=== PATIENT | male | born 1945 | race Caucasian/White ===

== ENCOUNTER 2020-08-04 16:05 | Emergency (ER) | payer MEDICARE, SELFPAY ==
--- NOTE | 2020-08-04 17:02 | PC.NURSE ---
1610- pt states that he currently has nose bleed stopped by sticking gauze in nare, and pt states on and off x 1 week, and is on blood thinners, pt states that he called his veneer clipper, who stated that he should go get it cauterized if it continues. pt decided to go to er, and left ambulatory with to drive him there.
== END 2020-08-04 16:10 | disposition left against medical advice (07) ==
PROVIDERS: Emergency Provider Internal Medicine Hematology & Oncology; PCP Family Medicine
DX: Z53.21 Procedure and treatment not carried out due to patient leaving prior to being seen by health care provider (principal)
CPT/HCPCS: 99199

== ENCOUNTER 2020-08-04 16:27 | Emergency (ER) | payer MEDICARE, SELFPAY ==
[2020-08-04 17:17] VITALS: BP 149/67; PULSE 76; RESP 16; TEMP 36.4; O2SAT 97
--- NOTE | 2020-08-04 17:20 | PC.NURSE ---
patient brought back to ED room 17 with c/o nose bleed intermittently for the last week. see triage notes. no change in patient's condition since triage done. ambulated to room. no active bleeding now.
--- NOTE | 2020-08-04 18:38 | PC.NURSE ---
resting in room. PA in room now. no further bleeding since arrival in ED. SO in room.
[2020-08-04] MEDS: OXYMETAZOLINE HCL 0.05% NAS 15 ML BTL (*BKC) 1 SPRAY (18:46)
--- NOTE | 2020-08-04 18:51 | PC.NURSE ---
provider in room. afrin and gauze to right nare.
--- NOTE | 2020-08-04 19:06 | ED.EPISTAXIS ---
HPI - Epistaxis General Chief complaint: Epistaxis Stated complaint: NOSE BLEED Time Seen by Provider: 08/04/20 18:03 Source: patient Mode of arrival: ambulatory Limitations: no limitations History of Present Illness HPI Narrative: This is a 74 year old male that presents to the ER for intermittent nosebleeds over the last week. Reports he has had nosebleeds from the right nare. No active bleeding currently. He takes aspirin and plavis daily. Denies fever. Related Data Home Medications Medication Instructions Recorded Confirmed aspirin 81 mg tablet,delayed 81 mg PO DAILY 08/23/19 release atorvastatin 40 mg tablet 40 mg PO DAILY 08/23/19 calcium carbonate 600 mg calcium 600 mg PO BID 08/23/19 (1,500 mg) tablet cholecalciferol (vitamin D3) 25 25 mcg PO DAILY 08/23/19 mcg (1,000 unit) capsule clopidogrel 75 mg tablet 75 mg PO DAILY 08/23/19 metoprolol succinate 50 mg capsule 50 mg PO DAILY 08/23/19 sprinkle, ext. release 24 hr multivitamin 1 cap PO DAILY 08/23/19 nitroglycerin 0.4 mg sublingual 0.4 mg SUBLINGUAL Q5M PRN 08/23/19 tablet pantoprazole 20 mg tablet,delayed 20 mg PO QAM 08/23/19 release Allergies Allergy/AdvReac Type Severity Reaction Status Date / Time lactase Allergy Unknown Nausea Verified 08/04/20 17:58 peanut Allergy Unknown digestive Verified 08/04/20 17:58 issues Review of Systems Review of Systems: Narrative: CONSTITUTIONAL: Denies fever ENT: Reports epistaxis All systems reviewed & are unremarkable except as noted in HPI and below PMFSH Past Medical History Medical History (Updated 08/04/20 @ 19:13 by Elyssa Mora PA-C) Aneurysm BPH (benign prostatic hyperplasia) Controlled diabetes mellitus Coronary artery disease GERD (gastroesophageal reflux disease) History of left heart catheterization HLD (hyperlipidemia) Hypertension with heart disease IFG (impaired fasting glucose) Surgical History Surgical History (System 09/11/19 @ 09:46 by Elmira Blair) History of shoulder surgery Right rotator cuff repair 2014- Dr. Martinez S/P right knee arthroscopy 2012 S/P right unicompartmental knee replacement 2011 Family History Family History (System 09/11/19 @ 09:46 by Elmira Blair) Father AAA (abdominal aortic aneurysm) Mother Diabetes mellitus Cerebrovascular accident Heart disease Sibling Diabetes mellitus Sibling Patient's sister is in good health Father Family history of aortic aneurysm Mother Family history of diabetes mellitus in first degree relative Social History Social History Smoking packs per day: 1 Smoking cigarettes per day: 20.0 Years smoked: 35 Smoking pack-years: 35.00 Smoking status: Former smoker Tobacco type: cigarettes Second hand tobacco smoke exposure: Yes Smoking end date: 06/27/02 Additional smoking assessment comments: Smoked for 35 years0 Alcohol intake: current Substance use: never Substance use type: does not use Additional living arrangements comments: Gender identity (if verbalized by the patient): Male Spiritual care concerns: No Exam Narrative: Exam Narrative: GENERAL: Well-appearing, well-nourished, and in no acute distress. HEAD: Normocephalic, atraumatic. EYES: EOMI. ENT: Nares clear, no rhinorrhea or epistaxis. Mucous membranes moist. Oropharynx without tonsillar hypertrophy exudate or other lesions. CHEST: Airway patent EXTREMITIES: Normal range of motion. No edema. SKIN: Warm, dry, no rash. NEURO: No focal deficits. Alert and oriented x3. PSYCH: Normal mood and affect Course Consultations Consultation #1: Spoke with Dr. Rodriguez about patient and workup. Will hold off on rhino rocket right now, patient is to follow up in clinic tomorrow Date: 08/04/20 Vital Signs Vital signs: Vital Signs Temperature 97.5 F L 08/04/20 17:17 Pulse Rate 76 08/04/20 17:17 Respiratory Rate
[2020-08-04 19:23] VITALS: BP 138/86; PULSE 78; RESP 19; TEMP 36.3; O2SAT 97
== END 2020-08-04 19:24 | disposition home or self-care (01) ==
PROVIDERS: Emergency Provider Emergency Medicine; PCP Family Medicine
DX: R04.0 Epistaxis (principal); N40.0 Benign prostatic hyperplasia without lower urinary tract symptoms; E11.9 Type 2 diabetes mellitus without complications; I25.10 Atherosclerotic heart disease of native coronary artery without angina pectoris; K21.9 Gastro-esophageal reflux disease without esophagitis; I11.9 Hypertensive heart disease without heart failure; E78.5 Hyperlipidemia, unspecified; Z96.651 Presence of right artificial knee joint; Z87.891 Personal history of nicotine dependence; Z79.82 Long term (current) use of aspirin; Z79.02 Long term (current) use of antithrombotics/antiplatelets
CPT/HCPCS: 30901; 99282; A9270

== ENCOUNTER 2020-09-02 10:30 | Outpatient (RCR) | payer MEDICARE, SELFPAY ==
[2020-06-05 09:31] VITALS: BMI 31.3
[2020-06-05 09:41] VITALS: BMI 31.3
== END 2020-09-03 23:59 | disposition home or self-care (01) ==
LOC: ANHDMC 10:30
PROVIDERS: PCP Family Medicine; Visit Provider Physician Assistant
DX: E11.9 Type 2 diabetes mellitus without complications (principal); Z71.3 Dietary counseling and surveillance; Z71.89 Other specified counseling
CPT/HCPCS: 97802; G0108

== ENCOUNTER 2020-11-19 14:30 | Outpatient (RCR) | payer MEDICARE, SELFPAY ==
[2020-09-18 09:44] VITALS: BMI 29.7
== END 2020-12-08 14:41 | disposition home or self-care (01) ==
LOC: ANHDMC 14:30
PROVIDERS: PCP Family Medicine; Visit Provider Physician Assistant
DX: E11.9 Type 2 diabetes mellitus without complications (principal); Z71.3 Dietary counseling and surveillance; Z71.89 Other specified counseling
CPT/HCPCS: 97803; G0109

== ENCOUNTER 2021-01-29 14:03 | Outpatient (RCR) | payer MEDICARE, SELFPAY | END 2021-04-22 11:53 | disposition home or self-care (01) | LOC: ANHDMC 14:03 | PROVIDERS: PCP Family Medicine; Visit Provider Physician Assistant | DX: E11.9 Type 2 diabetes mellitus without complications (principal) | CPT/HCPCS: 99199 ==

== ENCOUNTER 2021-08-03 00:43 | Day surgery (SDC) | payer MEDICARE, SELFPAY ==
[2021-07-24 14:42] VITALS: BMI 27.8
--- NOTE | 2021-08-03 07:31 | WPDANESEPPF ---
Anes - Initial Pre Proc Eval Procedure: Operation Date: 08/03/21 08:30 Proposed Procedures p Esophagogastroduodenoscopy - Neno Garrett MD Date/Time: 08/03/21 07:31 Surgeon: Neno Garrett MD Pre Op Diagnosis: GERD, dysphagia Patient Data Age: 75 Gender: M Height: 1.78 m Weight: 88 kg Allergies Allergy/AdvReac Type Severity Reaction Status Date / Time lactose Allergy Intermediate Gastrointestinal Verified 08/03/21 07:38 Upset peanut Allergy Intermediate digestive Verified 08/03/21 07:38 issues lactase Allergy Unknown Nausea Verified 08/03/21 07:38 Home Medications Medication Instructions Recorded Confirmed Type aspirin 81 mg tablet,delayed 81 mg PO DAILY 08/23/19 08/03/21 History release atorvastatin 40 mg tablet 40 mg PO DAILY 08/23/19 08/03/21 History calcium carbonate 600 mg calcium 600 mg PO DAILY 08/23/19 08/03/21 History (1,500 mg) tablet cholecalciferol (vitamin D3) 25 25 mcg PO DAILY 08/23/19 08/03/21 History mcg (1,000 unit) capsule clopidogrel 75 mg tablet 75 mg PO DAILY 08/23/19 08/03/21 History multivitamin 1 cap PO DAILY 08/23/19 08/03/21 History nitroglycerin 0.4 mg sublingual 0.4 mg SUBLINGUAL Q5M PRN 08/23/19 08/03/21 History tablet blood sugar diagnostic #100 ea 03/11/21 08/03/21 Rx blood-glucose meter #1 ea 03/11/21 08/03/21 Rx lancets #100 ea 03/11/21 08/03/21 Rx acyclovir 400 mg tablet 400 mg PO DAILY #90 tablet 04/06/21 08/03/21 Rx doxazosin 8 mg tablet See Rx Instructions .ROUTE 04/06/21 08/03/21 Rx .COMPLEX #90 tablet pantoprazole 40 mg tablet,delayed 40 mg PO QAM #30 tablet 07/22/21 08/03/21 Rx release metoprolol succinate 50 mg PO DAILY 07/24/21 08/03/21 History mupirocin 1 applic TOPICAL BID PRN 07/24/21 08/03/21 History Patient hx anesthesia problems: none Family hx anesthesia problems: none Results Review: All pre-operative results and documents have been reviewed as part of the pre-operative evaluation. [facility] Past Medical History Medical History (Updated 08/03/21 @ 07:54 by Neno Garrett MD) Aneurysm BPH (benign prostatic hyperplasia) Controlled diabetes mellitus Coronary artery disease Diabetes GERD (gastroesophageal reflux disease) History of left heart catheterization HLD (hyperlipidemia) Hypertension with heart disease IFG (impaired fasting glucose) Surgical History Surgical History History of shoulder surgery Right rotator cuff repair 2014- Dr. Martinez S/P right knee arthroscopy 2012 S/P right unicompartmental knee replacement 2011 Family History Family History Father AAA (abdominal aortic aneurysm) Mother Diabetes mellitus Cerebrovascular accident Heart disease Sibling Diabetes mellitus Sibling Patient's sister is in good health Father Family history of aortic aneurysm Mother Family history of diabetes mellitus in first degree relative Social History Social History (Updated 07/22/21 @ 11:09 by Alisha Partida) Social History: Smoking packs per day: 1 Smoking cigarettes per day: 20.0 Years smoked: 35 Smoking pack-years: 35.00 Smoking status: Former smoker Tobacco type: cigarettes Second hand tobacco smoke exposure: Yes Smoking end date: 06/27/02 Additional smoking assessment comments: Smoked for 35 years0 Alcohol intake: current Alcohol use details: occasionally Substance use: never Substance use type: does not use Living arrangements: with family Additional living arrangements comments: Gender identity (if verbalized by the patient): Male Sexual Orientation (if Verbalized by the Patient): Straight or Heterosexual Spiritual care concerns: No Anes - Eval Final PreProcedure Day of Procedure 08/03/21 07:31 Patient weight: overweight Heart: regular rate and rhythm Lungs: clear to auscultation and normal air movement Airway:
[2021-08-03 07:39] VITALS: BP 136/71; PULSE 71; RESP 16; TEMP 35.7; O2SAT 98
[2021-08-03] MEDS: LACTATED RINGERS 1,000 ML 150 ML IV CONT (07:52)
--- NOTE | 2021-08-03 07:52 | WPDGICN ---
Assessment and Plan Assessment and plan (1) Dysphagia: Code(s): R13.10 - Dysphagia, unspecified Status: Acute Assessment and Plan: Patient has occasional episodes of dysphagia. 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 Plan is for EGD assess more thoroughly and possible dilate this pending findings. (2) GERD (gastroesophageal reflux disease): Code(s): K21.9 - Gastro-esophageal reflux disease without esophagitis Status: Acute Assessment and Plan: Patient with chronic GE reflux disease currently on pantoprazole 40mg p.o. daily. Will continue this dose of medicines along with anti-reflux measures. EGD to be performed today. GI Consult Note Consult date/time: 08/03/21 07:52 HPI: Kenny Multani is a 75 year old male Presents for EGD. Patient has a history of acid reflux. He has been maintained on pantoprazole for 6 or 7 years. In June had brief episode where food caught the mid substernal portion of the chest. He has had an frequent sensation of fullness in the chest as well. He is known to have acid reflux and regurgitation for at least the fiber 6 years. Previously had a web dilated. Denies any weight loss or bleeding. Family history is noncontributory. He presents today for EGD. Review of Systems Review of Systems: All systems reviewed & are unremarkable except as noted in HPI and below PMFSH Past Medical History Medical History (Updated 08/03/21 @ 07:54 by Neno Garrett MD) Aneurysm BPH (benign prostatic hyperplasia) Controlled diabetes mellitus Coronary artery disease Diabetes GERD (gastroesophageal reflux disease) History of left heart catheterization HLD (hyperlipidemia) Hypertension with heart disease IFG (impaired fasting glucose) Surgical History Surgical History History of shoulder surgery Right rotator cuff repair 2014- Dr. Martinez S/P right knee arthroscopy 2012 S/P right unicompartmental knee replacement 2012 Family History Family History Father AAA (abdominal aortic aneurysm) Mother Diabetes mellitus Cerebrovascular accident Heart disease Sibling Diabetes mellitus Sibling Patient's sister is in good health Father Family history of aortic aneurysm Mother Family history of diabetes mellitus in first degree relative Social History Social History (Updated 07/22/21 @ 11:09 by Alisha Sweeney Social History: Smoking packs per day: 1 Smoking cigarettes per day: 20.0 Years smoked: 35 Smoking pack-years: 35.00 Smoking status: Former smoker Tobacco type: cigarettes Second hand tobacco smoke exposure: Yes Smoking end date: 06/27/02 Additional smoking assessment comments: Smoked for 35 years0 Alcohol intake: current Alcohol use details: occasionally Substance use: never Substance use type: does not use Living arrangements: with family Additional living arrangements comments: Gender identity (if verbalized by the patient): Male Sexual Orientation (if Verbalized by the Patient): Straight or Heterosexual Spiritual care concerns: No Meds Home Medications and Allergies Home Medications Medication Instructions Recorded Confirmed Type aspirin 81 mg tablet,delayed 81 mg PO DAILY 08/23/19 08/03/21 History release atorvastatin 40 mg tablet 40 mg PO DAILY 08/23/19 08/03/21 History calcium carbonate 600 mg calcium 600 mg PO DAILY 08/23/19 08/03/21 History (1,500 mg) tablet cholecalciferol (vitamin D3) 25 25 mcg PO DAILY 08/23/19 08/03/21 History mcg (1,000 unit) capsule clopidogrel 75 mg tablet 75 mg PO DAILY 08/23/19 08/03/21 History multivitamin 1 cap PO DAILY 08/23/19 08/03/21 History nitroglycerin 0.4 mg sublingual 0.4 mg SUBLINGUAL Q5M PRN 08/23/19 08/03/21 History tablet blood sugar diagnostic #100 reina 03/11/21 08/03/21 Rx blood-glucose meter #1 reina
[2021-08-03] MEDS: BENZOCAINE (*SP) 60 ML SPRAY CAN (HURRICAINE) 1 SPRAY MUCOUS MEM (08:26)
[2021-08-03 08:33] VITALS: BP 115/75; PULSE 63; RESP 17; O2SAT 99
[2021-08-03 08:43] VITALS: BP 125/50; PULSE 66; RESP 19; O2SAT 98
[2021-08-03 08:53] VITALS: BP 124/81; PULSE 64; RESP 17; O2SAT 98
== END 2021-08-03 08:59 | disposition home or self-care (01) ==
PROVIDERS: PCP Family Medicine; Visit Provider Internal Medicine Gastroenterology
PROC: 0DJ08ZZ Inspection of Upper Intestinal Tract, Via Natural or Artificial Opening Endoscopic (ICD-10-PCS; CPT 43235; principal; 2021-08-03 08:30)
DX: K22.2 Esophageal obstruction (principal); K21.9 Gastro-esophageal reflux disease without esophagitis; I25.10 Atherosclerotic heart disease of native coronary artery without angina pectoris; E78.5 Hyperlipidemia, unspecified; E11.9 Type 2 diabetes mellitus without complications; I11.9 Hypertensive heart disease without heart failure; N40.0 Benign prostatic hyperplasia without lower urinary tract symptoms; Z87.891 Personal history of nicotine dependence; Z79.82 Long term (current) use of aspirin; Z79.02 Long term (current) use of antithrombotics/antiplatelets
CPT/HCPCS: 43450; 43235; J2704; J7120

== ENCOUNTER 2023-10-11 09:00 | Outpatient (RCR) | payer MEDICARE, SELFPAY ==
--- NOTE | 2023-09-13 10:46 | PTOPEVAL1 ---
Assessment and note entered by Michael Sanchez, PT Evaluation Information Assessment Status Evaluation Diagnosis Cervicalgia Onset January of 2023 Subjective Information Reports pain on left side of head and neck. Pain is not constant but it is increased with lifting. At times feels like ear pain and into left shoulder. He is not having much trouble at night when sleeping. Most pain is when up and active. No pain radiation at this time. History of R shoulder arthroscopy. Patient is R handed. Reported Pain Level Pain Score 3: Self Report Assessment PT Clinical Summary Patient presents with rigid mobility to left side of cervical spine with limited unilateral motion. Signs and symptoms consistent with facet joint arthritis. Will benefit from skilled therapy to address these deficits to improve functional cervical mobility and reduce pain with ADL function. Plan of Care Interventions Electrical Stimulation,Hot Pack/Cold Pack,Manual Therapy,Mechanical Traction,Neuro Re-education, Therapeutic Activities,Therapeutic Exercise PT Services Indicated Yes Treatment Frequency and 2x/week for 8 visits Duration These treatments will address the objective and functional deficits as defined above. The patient will be advanced safely and appropriately in order for the patient to progress towards his/her prior level of function. Additional exercises will be introduced and as well as a comprehensive home exercise program upon discharge, if needed, ?to ensure carryover of functional gains achieved in the clinic. This treatment plan has been reviewed and agreement upon by the patient.
--- NOTE | 2023-09-13 10:46 | OPREHPOC ---
Outpatient Therapy Plan of Care This is a Multidisciplinary Plan of Care that may contain components documented by all disciplines (PT, OT, and ST.) PT Problem 1 PT Problem #1 Knowledge Deficit PT Goal 1 Goal [place] with HEP Target Visit 4 PT Problem 2 PT Problem #2 Pain PT Goal 1 Goal Patient will report no pain with overhead lift of #3 for functional lifting improvement Target Visit 4 PT Problem 3 PT Problem #3 Impaired Range of Motion PT Goal 1 Goal Improve armond cervical rotation to 60 degrees to improve functional cervical mobility Target Visit 8 PT Goal 2 Goal Patient will improve cervical extension ROM to 40 degrees to improve facet glide for functional mobility Target Visit 8
--- NOTE | 2023-10-11 09:54 | PTOPDC ---
Assessment and note entered by Michael Sanchez, PT Evaluation Information Assessment Status Discharge Diagnosis Cervicalgia Onset January of 2023 Subjective Information Reports that at this time he is noticing some increased pain that is sporadic but overall he is seeing improvement. Pain continues to start on posterior skull and go into shoulder. Feels therapy has helped and would like to continue HEP with discharge and return to therapy if needed. No questions at this time. Reported Pain Level Pain Score 1: Self Report Assessment PT Clinical Summary Patient has seen improvement in L sided cervical mobility but is still limited based on R sided functional motion. He shows compliance with HEP at this time and is suitable fir discharge to HEP at this time. Plan of Care PT Services Indicated D/C to HEP
--- NOTE | 2023-10-11 09:54 | OPREHPOC ---
Outpatient Therapy Plan of Care This is a Multidisciplinary Plan of Care that may contain components documented by all disciplines (PT, OT, and ST.) PT Problem 1 PT Problem #1 Knowledge Deficit PT Goal 1 Goal [place] with HEP Target Visit 4 Progress Met PT Problem 2 PT Problem #2 Pain PT Goal 1 Goal Patient will report no pain with overhead lift of #3 for functional lifting improvement Target Visit 4 Progress Met PT Problem 3 PT Problem #3 Impaired Range of Motion PT Goal 1 Goal Improve armond cervical rotation to 60 degrees to improve functional cervical mobility Target Visit 8 Progress Partially Met Comment Improved but not fully met to left side PT Goal 2 Goal Patient will improve cervical extension ROM to 40 degrees to improve facet glide for functional mobility Target Visit 8 Progress Met
== END 2023-10-11 11:29 | disposition home or self-care (01) ==
LOC: ANHGOSHPT 09:00
PROVIDERS: PCP Family Medicine; Visit Provider Otolaryngology
DX: M54.2 Cervicalgia (principal)
CPT/HCPCS: 97110; 97140; 97161; 97530

== ENCOUNTER 2024-02-17 14:29 | Outpatient (CLI) | payer MEDICARE, SELFPAY ==
--- NOTE | ~2024-02-17 | XR_ITS ---
[id number] Ordering provider: Serg Vergara MD History: . M54.2 - Cervicalgia . Comparison: None. FINDINGS: VERTEBRAL BODIES: Normal height and alignment. No visible fracture or subluxation. The dens is intact . DISK SPACES: Degenerative disc disease at the level of C6-C7. Multilevel uncovertebral joint osteoart hritic changes. PARASPINOUS SOFT TISSUES: No prevertebral soft tissue swelling. IMPRESSION: No acute osseous abnormality cervical spine. Degenerative disc disease at the level of C6-C7 with multilevel uncovertebral joint osteoarthritic ch wilfredo. Reviewed, dictated and finalized at location A. IMPRESSION: No acute osseous abnormality cervical spine. Degenerative disc disease at the level of C6-C7 with multilevel uncovertebral j oint osteoarthritic changes.
== END 2024-02-17 14:30 ==
PROVIDERS: PCP Family Medicine; Visit Provider Otolaryngology
DX: M50.323 Other cervical disc degeneration at C6-C7 level (principal)
CPT/HCPCS: 72040

== ENCOUNTER 2024-11-01 08:13 | Outpatient (CLI) | payer MEDICARE, SELFPAY ==
--- NOTE | ~2024-11-01 | MR_ITS ---
MRI of the cervical spine Clinical History: Radicular Technique: Axial T2-weighted and gradient images, and sagittal T1-weighted, T2-weighted, and STIR rosemarie ges were acquired. Findings: There is no fracture or sublocation of the cervical spine. Vertebral bodies maintain normal height and line. Intraosseous hemangioma of T3 noted. No suspicious bone marrow signal abnormality s een. At C2-C3, there is minimal disc bulge. No spinal canal cirrhosis, cord compression, or definite neura l foraminal narrowing. At C3-C4, there is minimal disc bulge. No spinal canal stenosis, cord compression, or neural foramina l narrowing. At C4-C5, there is disc osteophyte complex. No canal stenosis or cord compression. Probable mild bila teral neural foraminal narrowing, right worse than left. At C5-C6, there is mild disc osteophyte complex. No canal stenosis or cord compression. There is mild bilateral neural foraminal narrowing. At C6-C7, there is mild disc osteophyte complex. No canal stenosis or cord compression. No definite n eural foraminal narrowing. No abnormal signal seen in the spinal cord. Paravertebral soft tissues are unremarkable. Impression: Mild degenerative spondylosis, as above. Reviewed, dictated and finalized at location . Impression: Mild degenerative spondylosis, as above.
--- OUTSIDE RECORDS SUMMARY | 2024-11-01 08:21 | XMS_ITS | Referral Summary ---
Author Organization [facility] [address] Address [address] [place] [address] Care Team Providers Care Sand Car Worker Name Role Phone Anthony Zhu MD Primary Care Provider Allergies Active Allergy Reactions Criticality Noted Date Comments Lactose Angioedema,Diarrhea,Stomach upset High Nuts Redness,Stomach upset Low 06/27/1999 Medications calcium carbonate (CALCIUM 600) 1,500 mg (600 mg of elemental calcium) tablet take 1 by Oral route 2 times every day 0 0 07/25/2014 Active cholecalciferol (cholecalcifero l) 1,000 unit tablet take 1 by oral route once 0 0 07/25/2014 Active aspirin (ASPIRIN LOW DOSE) 81 mg tablet take 1 tablet by oral route every day 0 0 10/17/2014 Active acyclovir (ZOVIRAX) 400 mg tablet take 1 tablet by oral route every day for 10 days 0 0 04/03/2015 Active multivitamin capsule Take 1 capsule by mouth daily Active pantoprazole DR (PROTONIX) 40 mg EC tablet Take 1 tablet (40 mg total) by mouth every morning 06/28/2022 Active atorvastatin (LIPITOR) 40 mg tablet TAKE 1 TABLET(40 MG) BY MOUTH DAILY 90 tablet 2 06/18/2024 Active clopidogreL (PLAVIX) 75 mg tablet TAKE 1 TABLET(75 MG) BY MOUTH DAILY 90 tablet 2 06/18/2024 Active metoprolol XL (TOPROL-XL) 50 mg extended release tablet TAKE 1 TABLET(50 MG) BY MOUTH DAILY 90 tablet 2 06/18/2024 Active nitroglycerin (NITROSTAT) 0.[address] 1 tablet (0.4 mg total) under the tongue every 5 (five) minutes as needed for chest pain (May repeat every 5 minutes with 3 doses maximum.) 25 tablet 1 08/02/2024 Active doxazosin (CARDURA) 8 mg tablet TAKE 1 TABLET(8 MG) BY MOUTH EVERY NIGHT 90 tablet 08/20/2024 Active Active Problems Problem Noted Date Diagnosed Date Lipid screening 01/28/2023 Atypical chest pain 01/28/2023 Hyperlipidemia associated with type 2 diabetes m ellitus 06/25/2020 Coronary artery disease 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 03/18/2017 Chronic obstructive pulmonary disease 03/18/2017 Palpitations 03/18/2017 Cough 07/25/2014 Overview (09/30/2016): Cough Benign prostatic hyperplasia 07/25/2014 Overview (09/30/2016): BPH (benign prostatic hyperplasia) Dyspnea on exertion 07/25/2014 Overview (09/30/2016): Exertional dyspnea Social History Tobacco Use Types Packs/Day Years Used Date Smoking Tobacco: Former Cigarettes 1 35 0 07/29/1966 - 07/29/2001 Smokeless Tobacco: Former Tobacco Cessation:Counseling Given: Not Answered Alcohol Use Standard Drinks/Week Comments Yes 3 (1 standard drink = 0.6 oz pur e alcohol) occassionally Sex and Gender Information Value Date Recorded Sex Assigned at Not on file Legal Sex Male 6:49 AM KEY CARRIER Gender Identity Not on file Sexual Orientation Not on file Last Filed Vital Signs Vital Sign Reading Time Taken Comments Blood Pressure 128/72 08/02/2024 7:48 AM KEY CARRIER Pulse 62 08/02/2024 7:48 AM KEY CARRIER Temperature - - Respiratory Rate - - Oxygen Saturation 96% 08/02/2024 7:48 AM KEY CARRIER Inhaled Oxygen Concentration - - Weight 95.3 kg (210 lb) 08/02/2024 7:48 AM KEY CARRIER Height 177.8 cm (5' 10 ) 08/02/2024 7:48 AM KEY CARRIER Body Mass Index 30.13 08/02/2024 7:48 AM KEY CARRIER Plan of Treatment Not on file Procedures Procedure Name Priority Date/Time Associated Diagnosis Comments POCT LIPID PANEL Routine 02/10/2024 7:57 AM CDT Coronary artery disease of [place] artery of [place] heart with stable angina pectoris Hyperlipidemia associated with type 2 diabetes mellitus (HCC) from Last 3 Months or Most Recently Relevant to Health Maintenance Results * POCT lipid panel (02/10/2024 7:57 AM CDT) Cholesterol, POC <100 mg/dL HDL, POC 31 mg/dL Triglycerides, POC 78 mg/dL LDL Cholesterol POC 53 mg/dL Chol/HDL Ratio, POC N/A Non-HDL Cholesterol, POC N/A mg/dL Cholesterol Total, POC <100 mg/dL Capillary blood 02/10/2024 7 :57 AM CDT Adalid Fairchild MD POINT OF CARE TEST ORDERA BLES Final Result from Last 3 Months or Most Recently Relevant to Health Maintenance Insurance MEDICARE MEDICARE [facility] [place] [address] MEDICARE [facility] MEDICARE SUPPLEMENT Care Teams Sand Car Worker Relationship Specialty Start Date End Date Anthony Zhu MD [address] [address] [facility] - General 09/24/16
--- OUTSIDE RECORDS SUMMARY | 2024-11-01 08:21 | XMS_ITS | Clinical Summary ---
Author Organization [facility] Address [address] [place] [address] Care Team Providers Care Supervisor Shipping Room Name Role Phone Unavailable Primary Care Provider Unavailabl e Social History Tobacco Use Types Packs/Day Years Used Date Smoking Tobacco: Never Assessed Sex and Gender Information Value Date Recorded Sex Assigned at Not on file Legal Sex Male 7:11 PM CDT Gender Identity Not on file Sexual Orientation Not on file Plan of Treatment Health Maintenance Due Date Last Done Comments Hepatitis C 1963 DTaP, Tdap and Td Vaccines ( 1 - Tdap) 1966 Pneumococcal Vaccine: 50+ Ye ars (1 of 1 - PCV) 1997 Zoster Vaccines (1 of 2) 1997 RSV Immunization or 60+ Years (1 - 1-dose 75+ series) 2022 COVID-19 Vaccine ( - 2023-2 5 season) 2024 Meningococcal B Vaccine Aged Out No l onger eligible based on patient's age to complete this topic Meningococcal Vaccine Aged Out No horacio tiffany eligible based on patient's age to complete this topic RSV Immunizations Under 20 Months Aged Out No longer eligible based on patient's age to complete this topic
--- OUTSIDE RECORDS SUMMARY | 2024-11-01 08:21 | XMS_ITS | Clinical Summary ---
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 03/18/2017 Chronic obstructive pulmonary disease 03/18/2017 Palpitations 03/18/2017 Cough 07/25/2014 Overview (09/30/2016): Cough Benign prostatic hyperplasia 07/25/2014 Overview (09/30/2016): BPH (benign prostatic hyperplasia) Dyspnea on exertion 07/25/2014 Overview (09/30/2016): Exertional dyspnea Surgical History Surgery Date Site/Laterality Comments JOINT REPLACEMENT 12/31/2011 VASECTOMY 06/27/1985 Medical History Medical History Date Comments Hx Other Medical CAD, BPH; Comme nts: MAF 07/25/2014 - GERD (gastroesophageal reflu x disease) 06/27/1999 Diabetes mellitus (HCC) 03/27/2020 Heart disease 07/11/2014 Clotting disorder 06/27/2014 Family History Medical History Relation Name Comments Cerebral aneurysm Father Cerebral a neurysm; Cause of : Cerebral aneurysm Alzheimer's disease Mother [place] Diabetes Mother [place] Heart attack Mother [place] Myocardial infa rction; Heart disease Mother [place] Stroke Mother [place] Stroke; Diabetes Sister 1 cheng Diabetes mellit us; Diabetes Sister 2 rasta Relation Name Status Comments Father Mother [place]ithfield Sister 1 cheng Sister 2 rasta Social History Tobacco Use Types Packs/Day Years Used Date Smoking Tobacco: Former Cigarettes 1 35 0 07/29/1966 - 07/29/2001 Smokeless Tobacco: Former Tobacco Cessation:Counseling Given: Not Answered Alcohol Use Standard Drinks/Week Comments Yes 3 (1 standard drink = 0.6 oz pur e alcohol) occassionally Sex and Gender Information Value Date Recorded Sex Assigned at Not on file Legal Sex Male 6:49 AM CORRECTIVE AND MANUAL ARTS THERAPIST Gender Identity Not on file Sexual Orientation Not on file Obstetrics History Last Filed Vital Signs Vital Sign Reading Time Taken Comments Blood Pressure 128/72 08/02/2024 7:48 AM CORRECTIVE AND MANUAL ARTS THERAPIST Pulse 62 08/02/2024 7:48 AM CORRECTIVE AND MANUAL ARTS THERAPIST Temperature - - Respiratory Rate - - Oxygen Saturation 96% 08/02/2024 7:48 AM CORRECTIVE AND MANUAL ARTS THERAPIST Inhaled Oxygen Concentration - - Weight 95.3 kg (210 lb) 08/02/2024 7:48 AM CORRECTIVE AND MANUAL ARTS THERAPIST Height 177.8 cm (5' 10 ) 08/02/2024 7:48 AM CORRECTIVE AND MANUAL ARTS THERAPIST Body Mass Index 30.13 08/02/2024 7:48 AM CORRECTIVE AND MANUAL ARTS THERAPIST Plan of Treatment Health Maintenance Due Date Last Done Comments Albumin Creatinine Ratio, Urine 1947 Depression Screening 1947 Fall Risk Assessment 1947 Hemoglobin A1C 1947 Hepatitis C Screening 1947 eGFR 1947 Dilated Eye Exam 1947 Foot Exam 1947 Hepatitis B Screening 1965 Zoster Vaccine (1 of 2) 1997 Abdominal Aortic Aneurysm (A AA) Screen 2012 Well Visit 65+ 2012 DTaP/Tdap/Td Vaccine (2 - Td or Tdap) 10/29/2024 10/29/2014 Lipid Panel 02/09/2025 02/10/2024, 02/25, 01/28/2023, Additional history exists Influenza Vaccine (Season Ended) 2025 04/18/2019, 04/11/2018, 04/04/2017, Additional history exists Pneumococcal vaccine 65+ Completed 017, 03/23/2016, 06/13/2014 Procedures Procedure Name Priority Date/Time Associated Diagnosis Comments POCT LIPID PANEL Routine 02/10/2024 7:57 AM CDT 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
== END 2024-11-01 08:14 | disposition home or self-care (01) ==
PROVIDERS: PCP Family Medicine; Visit Provider Family Medicine
DX: M47.22 Other spondylosis with radiculopathy, cervical region (principal)
CPT/HCPCS: 72141

== ENCOUNTER 2024-11-05 08:38 | Emergency (ER) | payer MEDICARE, SELFPAY ==
[2024-11-05 08:45] VITALS: BP 142/70; PULSE 79; RESP 18; TEMP 36.4; O2SAT 96
--- NOTE | 2024-11-05 09:16 | ED_ITS ---
HPI - Back Pain/Injury General Chief Complaint: Back Pain/Injury Stated Complaint: back pain Time Seen by Provider: 11/05/24 09:10 Source: patient, family and RN notes reviewed Mode of arrival: ambulatory Limitations: no limitations History of Present Illness HPI Narrative: 79-year-old male presents Express Care complaining of right flank pain for 1 week. Patient stated he started having pain in his right flank has radiated to his abdomen. Patient states he has a history of kidney stones in the see urologist before in the past. Patient denies any injury to his back. His primary prescribed a muscle relaxers has not helped with his pain. Patient denies any urinary symptoms, fevers, body aches, chills, nausea, vomiting, diarrhea. Related Data Home Medications ?Medication ?Instructions ?Recorded ?Confirmed ?Last Taken ?Type aspirin 81 mg tablet,delayed 81 mg PO DAILY 08/23/19 10/08/24 08/02/21 06:00 History release (Adult Low Dose Aspirin) atorvastatin 40 mg tablet 40 mg PO DAILY 08/23/19 10/08/24 08/02/21 06:00 History calcium carbonate (Calcium 600) 600 mg PO DAILY 08/23/19 10/08/24 08/02/21 06:00 History cholecalciferol (vitamin D3) 25 25 mcg PO DAILY 08/23/19 10/08/24 08/02/21 06:00 History mcg (1,000 unit) capsule clopidogrel 75 mg tablet 75 mg PO DAILY 08/23/19 10/08/24 07/29/21 History multivitamin 1 cap PO DAILY 08/23/19 10/08/24 08/02/21 06:00 History nitroglycerin 0.4 mg sublingual 0.4 mg sublingual Q5M PRN c 08/23/19 10/08/24 08/02/21 06:00 History tablet metoprolol succinate 50 mg 50 mg PO DAILY 07/24/21 10/08/24 08/03/21 04:30 History tablet,extended release 24 hr mupirocin 2 % topical ointment 1 applic topical BID PRN nose 07/24/21 10/08/24 08/02/21 06:00 History Allergies Allergy/AdvReac Type Severity Reaction Status Date / Time lactose Allergy Intermediate Gastrointestinal Verified 11/05/24 09:10 Upset peanut Allergy Intermediate digestive Verified 11/05/24 09:10 issues lactase Allergy Unknown Nausea Verified 11/05/24 09:10 Review of Systems Review of Systems: CONSTITUTIONAL: Denies fever, chills, or sweats. EYES: Denies visual changes, redness, or discharge. ENT: Denies rhinorrhea, congestion, sore throat, or otalgia. CARDIOVASCULAR: Denies chest pain, palpitations, or edema. RESPIRATORY: Denies cough or dyspnea. GASTROINTESTINAL: Denies abdominal pain, nausea, vomiting, or diarrhea. GENITOURINARY: Denies dysuria or hematuria. Positive for flank pain. SKIN: Denies rash or itching. MUSCULOSKELETAL: Denies back pain, joint pain, or myalgia. NEUROLOGIC: Denies headache, numbness, or weakness. PSYCHIATRIC: Denies anxiety or depression. All other systems reviewed are negative, except as documented in HPI. [facility] Past Medical History Medical History Diabetes Controlled diabetes mellitus Aneurysm History of left heart catheterization BPH (benign prostatic hyperplasia) GERD (gastroesophageal reflux disease) IFG (impaired fasting glucose) HLD (hyperlipidemia) Hypertension with heart disease Coronary artery disease Surgical History Surgical History S/P right knee arthroscopy 2011 S/P right unicompartmental knee replacement 2012 History of shoulder surgery Right rotator cuff repair 2014- Dr. Martinez Family History Family History Father AAA (abdominal aortic aneurysm) Mother Diabetes mellitus Cerebrovascular accident Heart disease Sibling Diabetes mellitus Sibling Patient's sister is in good health Father Family history of aortic aneurysm Mother Family history of diabetes mellitus in first degree relative Social History Social History Social History: Smoking packs per day: 1 Smoking cigarettes per day: 20.0 Years smoked: 35 Smoking pack-years: 35.00 Smoking status: Former smoker Tobacco type: cigarettes Second hand tobacco smoke exposure: Yes Smoking end date: 06/27/02 Additional smoking assessment comments: Smoked for 35 years0 Alcohol intake: current Alcohol use details: occasionally Substance use: never Substance use type: does not use Do You Feel Safe in your Home?: Yes Lack of Transportation: No Lack of Food: Never True Current Housing: I Have Housing Concerned About Future Housing: No Difficulty Paying Gas/Electric Bills: No Difficulty Paying for Meds: No Currently Unemployed: YES Education: High School Diploma/GED Difficulty w/ Childcare or Family Care: No Living arrangements: with family Additional living arrangements comments: Occupation/Education: retired Gender identity (if verbalized by the patient): Male Sexual Orientation (if Verbalized by the Patient): Straight or Heterosexual Spiritual care concerns: No Comments At the time of my signature, I reviewed and agree with the nursing past medical, surgical, social, and family history. There is no relevant family history pertinent to the patient complaint. Exam Narrative: GENERAL: This is a well-nourished, well-developed adult, in no apparent distress. They are non ill-appearing, nontoxic appearing. HEAD: normocephalic, atraumatic. EYES: Sclera clear/white. Conjunctiva normal. Vision is grossly intact. Extraocular movements intact EARS: External ears normal,Hearing grossly intact. NOSE: External nose normal THROAT: Mucous membranes moist, NECK: Normal range of motion CARDIOVASCULAR: Regular rate and rhythm without murmurs, gallops, or rubs. RESPIRATORY: Clear to auscultation. Breath sounds equal bilaterally. No wheezes, rales, or rhonchi. GASTROINTESTINAL: Abdomen soft, non-tender, nondistended. Bowel sounds are active. No hepato-splenomegaly, or palpable masses. No guarding. No rebound tenderness. SKIN: warm, Dry, intact with no suspicious lesions or rash, good texture and turgor. NEURO: awake, alert, and oriented to person, place and time. There were no obvious focal neurologic abnormalities. EXTREMITIES: No joint tenderness, effusion, or edema noted. BACK: Nontender without deformity. No CVA tenderness. Course Course Emergency Course: Portions of this record may have been created with voice recognition software Level of Care: Express Care Visit Vital Signs Vital signs: Reviewed MDM - Back Pain/Injury MDM Narrative Medical decision making narrative: Patient's symptoms are consistent with a kidney stone. Advised patient today at this facility does not have x-ray. Urine dipstick without any evidence of infection or blood. Discussed with patient we cannot confirm the diagnosis here. Offered patient ER transfer for further evaluation and management of his symptoms. Patient states he will follow up with his urologist and PCP for further evaluation and management of his symptoms. Discussed physical exam findings. Advised supportive measures and signs/symptoms to go to the ER. Pt is appropriate for outpt treatment and f/u. 1103 Patient returned requesting for a Flomax prescription because he cannot get in to his urologist or PCP this week. Advised patient that he should proceed to the ER for further evaluation management and he declined. Will send prescription of Flomax over. ER precautions reinforced with patient. Differential Diagnosis Differential diagnosis: Likely strain of lumbar region and other (Urinary tract infection, kidney stone) Lab Data Attestation: I reviewed the patient's lab results. Critical Care Time Critical Care Time Critical Care Time: No Discharge Plan Discharge Clinical Impression: Right flank pain Patient Disposition: Home Condition: Stable Instructions: Kidney Stones (ED) Additional Instructions: Your urine dipstick was negative for any signs of infection or blood in urine. It may be possible that you have a kidney stone. Please strain your urine with a urine strainer. Please follow-up with a urologist in 3 days for further evaluation and management. Please take Tylenol or ibuprofen as needed for pain. If your symptoms worsen, you develop worsening pain, fevers, unable to urinate nausea, vomiting or any other concerns please go to the ER immediately. Patient Language: Kiswahili Prescriptions: New tamsulosin [Flomax] 0.4 mg capsule 0.4 mg PO HS 14 Days Qty: 14 0RF No Action aspirin [Adult Low Dose Aspirin] 81 mg tablet,delayed release (DR/EC) 81 mg PO DAILY atorvastatin 40 mg tablet 40 mg PO DAILY calcium carbonate [Calcium 600] 600 mg calcium (1,500 mg) tablet 600 mg PO DAILY cholecalciferol (vitamin D3) 25 mcg (1,000 unit) capsule 25 mcg PO DAILY clopidogrel 75 mg tablet 75 mg PO DAILY multivitamin Capsule 1 cap PO DAILY nitroglycerin 0.4 mg tablet, sublingual 0.4 mg SUBLINGUAL Q5M PRN (Reason: c) Rx Instructions: until response; do not exceed 3 doses per episode mupirocin 2 % ointment 1 applic topical BID PRN (Reason: nose) metoprolol succinate 50 mg tablet extended release 24 hr 50 mg PO DAILY (DME) blood-glucose meter Misc See Rx Instructions .MEDSUPPLY Qty: 1 0RF Rx Instructions: As directed (DME) lancets [Microlet Lancet] Misc See Rx Instructions .ROUTE .COMPLEX Qty: 100 2RF Dose Instruction: TEST ONCE DAILY Rx Instructions: TEST ONCE DAILY doxazosin 8 mg tablet See Rx Instructions .ROUTE .COMPLEX Qty: 90 2RF Dose Instruction: TAKE 1 TABLET BY MOUTH DAILY Rx Instructions: TAKE 1 TABLET BY MOUTH DAILY (DME) Contour Next Test Strips Strip See Rx Instructions .ROUTE .COMPLEX Qty: 100 3RF Dose Instruction: TEST ONCE DAILY Rx Instructions: TEST ONCE DAILY pantoprazole 40 mg tablet,delayed release (DR/EC) 40 mg PO QAM Qty: 90 2RF acyclovir 400 mg tablet 400 mg PO DAILY Qty: 90 2RF methocarbamol 750 mg tablet 750 mg PO QID PRN (Reason: muscle spasm) Qty: 60 0RF Follow-up/Referrals: Anthony Zhu MD [Primary Care Provider] - Time of Disposition: 09:42
[2024-11-05 11:15] LABS: EDUAAPPEAR Clear; EDUABILI Negative (Negative); EDUABLOOD Negative (Negative); EDUACOLOR1 Yellow; EDUAGLUCOSE Negative (Negative); EDUAKETONE Negative (Negative); EDUALEUKO Negative (Negative); EDUANITRATE Negative (Negative); EDUAPROTEIN Negative (Negative); EDUASPGRAVITY 1.025; EDUAUROBILI 0.2
== END 2024-11-05 09:48 | disposition home or self-care (01) ==
PROVIDERS: PCP Family Medicine
DX: R10.9 Unspecified abdominal pain (principal); Z87.891 Personal history of nicotine dependence; E11.9 Type 2 diabetes mellitus without complications; N40.0 Benign prostatic hyperplasia without lower urinary tract symptoms; K21.9 Gastro-esophageal reflux disease without esophagitis; E78.5 Hyperlipidemia, unspecified; I25.10 Atherosclerotic heart disease of native coronary artery without angina pectoris; I10 Essential (primary) hypertension; Z96.651 Presence of right artificial knee joint
CPT/HCPCS: 81003; 99213; G0463

== ENCOUNTER 2024-11-06 11:32 | Emergency (ER) | payer MEDICARE, SELFPAY ==
[2024-11-06 11:41] VITALS: BP 136/112; PULSE 64; RESP 16; TEMP 36.2; O2SAT 99
--- NOTE | 2024-11-06 12:03 | ED_ITS ---
HPI - General Adult General Chief complaint: Unspecified Stated complaint: wanting an kidney x-ray Time Seen by Provider: 11/06/24 12:10 Source: patient Mode of arrival: ambulatory Limitations: no limitations History of Present Illness HPI narrative: 79 y/o male with history of kidney stones DM, and HTN presented for c/o right flank pain worsening for one week. Pain now radiates into the right groin. Pain is worse since yesterday. Rates pain 8/10, worse with walking. Denies hematuria, n/v/d/f/c. Pt was seen in clinic yesterday for the same, pt is unable to be seen by his urologist until November. Pt was prescribed tamsulosin yesterday. Took Tylenol. Related Data Home Medications ?Medication ?Instructions ?Recorded ?Confirmed ?Last Taken ?Type aspirin 81 mg tablet,delayed 81 mg PO DAILY 08/23/19 10/08/24 08/02/21 06:00 History release (Adult Low Dose Aspirin) atorvastatin 40 mg tablet 40 mg PO DAILY 08/23/19 10/08/24 08/02/21 06:00 History calcium carbonate (Calcium 600) 600 mg PO DAILY 08/23/19 10/08/24 08/02/21 06:00 History cholecalciferol (vitamin D3) 25 25 mcg PO DAILY 08/23/19 10/08/24 08/02/21 06:00 History mcg (1,000 unit) capsule clopidogrel 75 mg tablet 75 mg PO DAILY 08/23/19 10/08/24 07/29/21 History multivitamin 1 cap PO DAILY 08/23/19 10/08/24 08/02/21 06:00 History nitroglycerin 0.4 mg sublingual 0.4 mg sublingual Q5M PRN c 08/23/19 10/08/24 08/02/21 06:00 History tablet metoprolol succinate 50 mg 50 mg PO DAILY 07/24/21 10/08/24 08/03/21 04:30 History tablet,extended release 24 hr mupirocin 2 % topical ointment 1 applic topical BID PRN nose 07/24/21 10/08/24 08/02/21 06:00 History Allergies Allergy/AdvReac Type Severity Reaction Status Date / Time lactose Allergy Intermediate Gastrointestinal Verified 11/06/24 11:34 Upset peanut Allergy Intermediate digestive Verified 11/06/24 11:34 issues lactase Allergy Unknown Nausea Verified 11/06/24 11:34 Review of Systems Review of Systems: CONSTITUTIONAL: Denies body aches, fever, chills EYES: Denies visual changes CARDIOVASCULAR: Denies chest pain, palpitations, or edema. RESPIRATORY: Denies cough or dyspnea. GASTROINTESTINAL: reports right flank and RLQ abdominal pain, denies nausea, vomiting, or diarrhea. SKIN: Denies rash, itching, or wounds. MUSCULOSKELETAL: reports back pain NEUROLOGIC: Denies headache, numbness, tingling, or weakness. All systems reviewed & are unremarkable except as noted in HPI and below PMFSH Past Medical History Medical History Diabetes Controlled diabetes mellitus Aneurysm History of left heart catheterization BPH (benign prostatic hyperplasia) GERD (gastroesophageal reflux disease) IFG (impaired fasting glucose) HLD (hyperlipidemia) Hypertension with heart disease Coronary artery disease Surgical History Surgical History S/P right knee arthroscopy 2011 S/P right unicompartmental knee replacement 2012 History of shoulder surgery Right rotator cuff repair 2014- Dr. Martinez Family History Family History Father AAA (abdominal aortic aneurysm) Mother Diabetes mellitus Cerebrovascular accident Heart disease Sibling Diabetes mellitus Sibling Patient's sister is in good health Father Family history of aortic aneurysm Mother Family history of diabetes mellitus in first degree relative Social History Social History Social History: Smoking packs per day: 1 Smoking cigarettes per day: 20.0 Years smoked: 35 Smoking pack-years: 35.00 Smoking status: Former smoker Tobacco type: cigarettes Second hand tobacco smoke exposure: Yes Smoking end date: 06/27/02 Additional smoking assessment comments: Smoked for 35 years0 Alcohol intake: current Alcohol use details: occasionally Substance use: never Substance use type: does not use Do You Feel Safe in your Home?: Yes Lack of Transportation: No Lack of Food: Never True Current Housing: I Have Housing Concerned About Future Housing: No Difficulty Paying Gas/Electric Bills: No Difficulty Paying for Meds: No Currently Unemployed: YES Education: High School Diploma/GED Difficulty w/ Childcare or Family Care: No Living arrangements: with family Additional living arrangements comments: Occupation/Education: retired Gender identity (if verbalized by the patient): Male Sexual Orientation (if Verbalized by the Patient): Straight or Heterosexual Spiritual care concerns: No Comments At time of signature, I have reviewed and agree with nursing past medical, surgical, social and family history unless otherwise noted. Please see nursing chart for further information. There is no relevant family history pertinent to the presenting complaint Exam Narrative: GENERAL: Well-appearing CHEST: Speaks in full sentences. No respiratory distress. HEART: Regular rate and rhythm. Normal and equal peripheral pulses. ABD: Tender to RLQ and Right CVA. soft, flat, nontender. No guarding, rebound tenderness, rigidity, or periumbilical tenderness. MUSC: No Vertebral point tenderness. No open wounds or rashes. pulse pa lpable and equal bilaterally, skin warm, dry, pink. Capillary refill less than 3 seconds. Gait steady. SKIN: Warm, dry, no rash. NEURO: Alert and oriented x3. Course Course Emergency Course: Patient is aware of diagnosis, understands and agrees to treatment plan. Anticipatory guidance given. Patient agrees to follow-up as directed and is aware of reasons to seek care at the emergency department. Portions of this record may have been created with voice recognition software Level of Care: Express Care Visit Vital Signs Vital signs: Vital Signs Temperature 97.2 F L 11/06/24 11:41 Pulse Rate 64 11/06/24 11:41 Respiratory Rate 16 11/06/24 11:41 Blood Pressure 136/112 H 11/06/24 11:41 Pulse Oximetry 99 11/06/24 11:41 Oxygen Delivery Room Air 11/06/24 11:41 Temperature 97.2 F L 11/06/24 11:41 Pulse Rate 64 11/06/24 11:41 Respiratory Rate 16 11/06/24 11:41 Blood Pressure 136/112 H 11/06/24 11:41 Pulse Oximetry 99 11/06/24 11:41 Oxygen Delivery Room Air 11/06/24 11:41 Reviewed Transfer Transfered to: [facility] Transportation: Other ( private vehicle) Transfer rationale: Pt is agreeable to transfer. Requests transfer to [facility] via private vehicle. Risks of transportation reviewed with pt including injury, worsening of condition and . v/u. will be driving pt; Report called to hospital, spoke with Concepcion Parsons PA-C, accepting physician. Pt is in stable condition at time of transfer. Advised to remain NPO and go directly to the hospital. Medical Decision Making Vital Signs Vital Signs: Vital Signs Temperature 97.2 F L 11/06/24 11:41 Pulse Rate 64 11/06/24 11:41 Respiratory Rate 16 11/06/24 11:41 Blood Pressure 136/112 H 11/06/24 11:41 Pulse Oximetry 99 11/06/24 11:41 Oxygen Delivery Room Air 11/06/24 11:41 Temperature 97.2 F L 11/06/24 11:41 Pulse Rate 64 11/06/24 11:41 Respiratory Rate 16 11/06/24 11:41 Blood Pressure 136/112 H 11/06/24 11:41 Pulse Oximetry 99 11/06/24 11:41 Oxygen Delivery Room Air 11/06/24 11:41 Discharge Plan Discharge Clinical Impression: Acute right flank pain Patient Disposition: Acute Care Hospital Condition: Stable Patient Language: Ecuadorean Prescriptions: No Action tamsulosin [Flomax] 0.4 mg capsule 0.4 mg PO HS 14 Days Qty: 14 0RF aspirin [Adult Low Dose Aspirin] 81 mg tablet,delayed release (DR/EC) 81 mg PO DAILY atorvastatin 40 mg tablet 40 mg PO DAILY calcium carbonate [Calcium 600] 600 mg calcium (1,500 mg) tablet 600 mg PO DAILY cholecalciferol (vitamin D3) 25 mcg (1,000 unit) capsule 25 mcg PO DAILY clopidogrel 75 mg tablet 75 mg PO DAILY multivitamin Capsule 1 cap PO DAILY nitroglycerin 0.4 mg tablet, sublingual 0.4 mg SUBLINGUAL Q5M PRN (Reason: c) Rx Instructions: until response; do not exceed 3 doses per episode mupirocin 2 % ointment 1 applic topical BID PRN (Reason: nose) metoprolol succinate 50 mg tablet extended release 24 hr 50 mg PO DAILY (DME) blood-glucose meter Misc See Rx Instructions .MEDSUPPLY Qty: 1 0RF Rx Instructions: As directed (DME) lancets [Microlet Lancet] Misc See Rx Instructions .ROUTE .COMPLEX Qty: 100 2RF Dose Instruction: TEST ONCE DAILY Rx Instructions: TEST ONCE DAILY doxazosin 8 mg tablet See Rx Instructions .ROUTE .COMPLEX Qty: 90 2RF Dose Instruction: TAKE 1 TABLET BY MOUTH DAILY Rx Instructions: TAKE 1 TABLET BY MOUTH DAILY (DME) Contour Next Test Strips Strip See Rx Instructions .ROUTE .COMPLEX Qty: 100 3RF Dose Instruction: TEST ONCE DAILY Rx Instructions: TEST ONCE DAILY pantoprazole 40 mg tablet,delayed release (DR/EC) 40 mg PO QAM Qty: 90 2RF acyclovir 400 mg tablet 400 mg PO DAILY Qty: 90 2RF methocarbamol 750 mg tablet 750 mg PO QID PRN (Reason: muscle spasm) Qty: 60 0RF Follow-up/Referrals: Anthony Zhu MD [Primary Care Provider] - Time of Disposition: 12:25
== END 2024-11-06 12:20 | disposition short-term general hospital (02) ==
PROVIDERS: Emergency Provider Nurse Practitioner Family; PCP Family Medicine
DX: R10.9 Unspecified abdominal pain (principal); Z87.891 Personal history of nicotine dependence; I10 Essential (primary) hypertension; E11.9 Type 2 diabetes mellitus without complications; I72.9 Aneurysm of unspecified site; N40.0 Benign prostatic hyperplasia without lower urinary tract symptoms; K21.9 Gastro-esophageal reflux disease without esophagitis; E78.5 Hyperlipidemia, unspecified; I25.10 Atherosclerotic heart disease of native coronary artery without angina pectoris; Z96.651 Presence of right artificial knee joint; Z79.82 Long term (current) use of aspirin; Z87.442 Personal history of urinary calculi
CPT/HCPCS: 99212; G0463

== ENCOUNTER 2024-11-06 12:50 | Emergency (ER) | payer MEDICARE, SELFPAY ==
--- NOTE | ~2024-11-06 | CT_ITS ---
CT abdomen pelvis wo con Ordering provider: Eunice Parsons PA-C History: 79 years Male with . right flank pain, RLQ abd pain . Comparison: None. Technique: CT abdomen and pelvis without IV and without oral contrast. Automated exposure control and iterative reconstruction technique were employed. The dose-length product was 363.13 mGy-cm. Findings: VISUALIZED LOWER CHEST: Normal. UPPER ABDOMINAL ORGANS: Liver: Hepatomegaly. Gallbladder: Normal. Spleen: Normal. Stomach/duodenum: Normal. Pancreas: Normal. Adrenals: Normal. Kidneys: No kidney stones. Stone in the right lower ureter is highly suggestive and measures 3 mm.. N o significant hydronephrotic changes seen in the right side.. Cyst seen in the left kidney lower pole measuring 1.8 cm.. PELVIC ORGANS: The bladder is normal. Enlarged prostate. BOWEL AND MESENTERY: Colon: No evidence of diverticulitis. Normal appendix. Small Bowel: Normal. No obstruction. Peritoneum/mesentery: No free air or free fluid. No mesenteric lymphadenopathy. RETROPERITONEUM: Mild atheromatous disease of the abdominal aorta. No retroperitoneal lymphadenopat hy. MUSCULOSKELETAL: Superficial soft tissues: The superficial soft tissues are normal. Bones: Age appropriate degenerative changes of the spine. Bilateral sacroiliacs. Bilateral hip osteoa rthritic changes. IMPRESSION: 1. Possible right lower ureteric stone. Follow-up advised. 2. No evidence of appendicitis, diverticulitis or intestinal obstruction. 3. Hepatomegaly. Reviewed, dictated and finalized at location A.
--- OUTSIDE RECORDS SUMMARY | 2024-11-06 12:57 | XMS_ITS | Clinical Summary ---
Author Organization [facility] Address [address] [place] [id number] Care Team Providers Care Machine Filler Servicer Name Role Phone Unavailable Primary Care Provider [...]
--- OUTSIDE RECORDS SUMMARY | 2024-11-06 12:57 | XMS_ITS | Referral Summary ---
Author Organization [facility] [address] Address [address] [place] [address] Care Team Providers Care Administration Internship Name Role Phone Anthony Zhu MD Primary [...] artery disease of n ative artery of [place] heart with stable angina pectoris 03/18/2017 Chronic [...] on file Legal Sex Male 6:49 AM STAMP CLERK Gender Identity Not on file Sexual Orientation Not on file Last Filed Vital Signs Vital Sign Reading Time Taken Comments Blood Pressure 128/72 08/02/2024 7:48 AM STAMP CLERK Pulse 62 08/02/2024 7:48 AM STAMP CLERK Temperature - - Respiratory Rate - - Oxygen Saturation 96% 08/02/2024 7:48 AM STAMP CLERK Inhaled Oxygen Concentration - - Weight 95.3 kg (210 lb) 08/02/2024 7:48 AM STAMP CLERK Height 177.8 cm (5' 10 ) 08/02/2024 7:48 AM STAMP CLERK Body Mass Index 30.13 08/02/2024 7:48 AM STAMP CLERK Plan of Treatment Not on file Procedures Procedure Name Priority Date/Time Associated Diagnosis Comments POCT LIPID PANEL Routine 02/10/2024 7:57 AM CDT Coronary artery disease of [place] artery of [place] heart with stable angina pectoris Hyperlipidemia associated [...] Relevant to Health Maintenance Insurance MEDICARE MEDICARE [facility] [address] MEDICARE [facility] MEDICARE SUPPLEMENT Care Teams Administration Internship Relationship Specialty Start Date End Date Anthony Zhu MD [address] [address] [facility] - General 09/24/16
--- OUTSIDE RECORDS SUMMARY | 2024-11-06 12:57 | XMS_ITS | Clinical Summary ---
Author Organization [facility] [address] Address [address] [place] [address] Care Team Providers Care Service Or Work Dispatcher Chief Name Role Phone Anthony Zhu MD Primary [...] artery disease of n ative artery of [place] heart with stable angina pectoris 03/18/2017 Chronic [...] of : Cerebral aneurysm Alzheimer's disease Mother [place] Diabetes Mother [place] Heart attack Mother [place] Myocardial infa rction; Heart disease Mother [place] Stroke Mother [place] Stroke; Diabetes Sister 1 cheng Diabetes mellit us; Diabetes Sister 2 rasta Relation Name Status Comments Father Mother [place] Sister 1 cheng Sister 2 rasta Social [...] on file Legal Sex Male 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 Gender Identity Not on file Sexual Orientation Not on file Obstetrics History Last Filed Vital Signs Vital Sign Reading Time Taken Comments Blood Pressure 128/72 08/02/2024 7:48 AM CORPORATE ATTORNEY Pulse 62 08/02/2024 7:48 AM CORPORATE ATTORNEY Temperature - - Respiratory Rate - - Oxygen Saturation 96% 08/02/2024 7:48 AM CORPORATE ATTORNEY Inhaled Oxygen Concentration - - Weight 95.3 kg (210 lb) 08/02/2024 7:48 AM CORPORATE ATTORNEY Height 177.8 cm (5' 10 ) 08/02/2024 7:48 AM CORPORATE ATTORNEY Body Mass Index 30.13 08/02/2024 7:48 AM CORPORATE ATTORNEY Plan of Treatment Health Maintenance Due Date [...] 7:57 AM CDT Coronary artery disease of [place] artery of [place] heart with stable angina pectoris Hyperlipidemia associated [...] Relevant to Health Maintenance Insurance MEDICARE MEDICARE [facility] [place] [address] [place] [address] [facility] MEDICARE SUPPLEMENT Care Teams Service Or Work Dispatcher Chief Relationship Specialty Start Date End Date Anthony Zhu MD [address] [facility] [address] [place] [address] PCP - General 09/24/16
[2024-11-06 13:40] VITALS: BP 146/68; PULSE 63; RESP 16; TEMP 36.6; O2SAT 98
--- NOTE | 2024-11-06 13:43 | ED.BACK ---
HPI - Back Pain/Injury General Chief Complaint: Back Pain/Injury <Eunice Parsons PA-C - Last Filed: 11/06/24 13:44> Stated Complaint: flank pain <Eunice Parsons PA-C - Last Filed: 11/06/24 13:44> Time Seen by Provider: 11/06/24 14:56 <Eunice Parsons PA-C - Last Filed: 11/06/24 13:44> Focused HPI: 79-year-old male presents to emergency department for right flank pain that radiates to the right lower quadrant for 1 week. States the pain is worse in the morning, better throughout the evening. The pain is intermittent in nature. He does endorse history of kidney stones about 10 years ago and states this pain feels similar. Denies nausea or vomiting, injury trauma, dysuria or hematuria. Went to [facility] and was sent to the ED for further evaluation. GENERAL: Well-appearing, well-nourished, and in no acute distress. HEAD: Normocephalic, atraumatic. CHEST: Clear to auscultation. ?No respiratory distress. ABD: Mild tenderness to the right lower quadrant, right CVA tenderness. No rebound or rigidity. HEART: Regular rate and rhythm.? NEURO: ?Alert and oriented x3. Patient screened in triage and initial orders placed.? ?Additional care and disposition to be based upon?diagnostic testing and treatment. <Eunice Parsons PA-C - Last Filed: 11/06/24 13:44> History of Present Illness HPI Narrative: Agree with HPI. History of kidney stone passed. No urinary frequency urgency or dysuria. <Nik Aldridge MD - Last Filed: 11/06/24 16:18> Related Data Home Medications: Home Medications ?Medication ?Instructions ?Recorded ?Confirmed ?Last Taken ?Type aspirin 81 mg tablet,delayed 81 mg PO DAILY 08/23/19 10/08/24 08/02/21 06:00 History release (Adult Low Dose Aspirin) atorvastatin 40 mg tablet 40 mg PO DAILY 08/23/19 10/08/24 08/02/21 06:00 History calcium carbonate (Calcium 600) 600 mg PO DAILY 08/23/19 10/08/24 08/02/21 06:00 History cholecalciferol (vitamin D3) 25 25 mcg PO DAILY 08/23/19 10/08/24 08/02/21 06:00 History mcg (1,000 unit) capsule clopidogrel 75 mg tablet 75 mg PO DAILY 08/23/19 10/08/24 07/29/21 History multivitamin 1 cap PO DAILY 08/23/19 10/08/24 08/02/21 06:00 History nitroglycerin 0.4 mg sublingual 0.4 mg sublingual Q5M PRN c 08/23/19 10/08/24 08/02/21 06:00 History tablet metoprolol succinate 50 mg 50 mg PO DAILY 07/24/21 10/08/24 08/03/21 04:30 History tablet,extended release 24 hr mupirocin 2 % topical ointment 1 applic topical BID PRN nose 07/24/21 10/08/24 08/02/21 06:00 History <Eunice Parsons PA-C - Last Filed: 11/06/24 13:44> Allergies/Adverse Reactions: Allergies Allergy/AdvReac Type Severity Reaction Status Date / Time lactose Allergy Intermediate Gastrointestinal Verified 11/06/24 13:44 Upset peanut Allergy Intermediate digestive Verified 11/06/24 13:44 issues lactase Allergy Unknown Nausea Verified 11/06/24 13:44 <Eunice Parsons PA-C - Last Filed: 11/06/24 13:44> Review of Systems Review of Systems: All systems reviewed & are unremarkable except as noted in HPI and below <Nik Aldridge MD - Last Filed: 11/06/24 16:18> Constitutional: Constitutional: Reports no additional constitutional complaints <Nik Aldridge MD - Last Filed: 11/06/24 16:18> ENT: Reports system reviewed and no additional complaints, except as documented <Nik Aldridge MD - Last Filed: 11/06/24 16:18> Cardiovascular: Cardiovascular: Reports no additional cardiovascular complaints <Nik Aldridge MD - Last Filed: 11/06/24 16:18> Respiratory: Respiratory: Reports no additional respiratory complaints <Nik Aldridge MD - Last Filed: 11/06/24 16:18> Gastrointestinal: Gastrointestinal: Reports no additional gastrointestinal complaints <Nik Aldridge MD - Last Filed: 11/06/24 16:18> Genitourinary: Genitourinary: Reports no additional male genitourinary complaints <Nik Aldridge MD - Last Filed: 11/06/24 16:18> [facility] Past Medical History Medical History: Medical History Diabetes Controlled diabetes mellitus Aneurysm History of left heart catheterization BPH (benign prostatic hyperplasia) GERD (gastroesophageal reflux disease) IFG (impaired fasting glucose) HLD (hyperlipidemia) Hypertension with heart disease Coronary artery disease <Eunice Parsons PA-C - Last Filed: 11/06/24 13:44> Surgical History Surgical History: Surgical History S/P right knee arthroscopy 2011 S/P right unicompartmental knee replacement 2011 History of shoulder surgery Right rotator cuff repair 2013- Dr. Martinez <Eunice Parsons PA-C - Last Filed: 11/06/24 13:44> Family History Family History: Family History Father AAA (abdominal aortic aneurysm) Mother Diabetes mellitus Cerebrovascular accident Heart disease Sibling Diabetes mellitus Sibling Patient's sister is in good health Father Family history of aortic aneurysm Mother Family history of diabetes mellitus in first degree relative <Eunice Parsons PA-C - Last Filed: 11/06/24 13:44> Social History Social History: Social History Social History: Smoking packs per day: 1 Smoking cigarettes per day: 20.0 Years smoked: 35 Smoking pack-years: 35.00 Smoking status: Former smoker Tobacco type: cigarettes Second hand tobacco smoke exposure: Yes Smoking end date: 06/27/02 Additional smoking assessment comments: Smoked for 35 years0 Alcohol intake: current Alcohol use details: occasionally Substance use: never Substance use type: does not use Do You Feel Safe in your Home?: Yes Lack of Transportation: No Lack of Food: Never True Current Housing: I Have Housing Concerned About Future Housing: No Difficulty Paying Gas/Electric Bills: No Difficulty Paying for Meds: No Currently Unemployed: YES Education: High School Diploma/GED Difficulty w/ Childcare or Family Care: No Living arrangements: with family Additional living arrangements comments: Occupation/Education: retired Gender identity (if verbalized by the patient): Male Sexual Orientation (if Verbalized by the Patient): Straight or Heterosexual Spiritual care concerns: No <Eunice Parsons PA-C - Last Filed: 11/06/24 13:44> Exam Narrative: GENERAL: Well-appearing, well-nourished, and in no acute distress. HEAD: Normocephalic, atraumatic. ENT: Mucous membranes moist. CHEST: Clear to auscultation. No respiratory distress. HEART: Regular rate and rhythm. Normal peripheral pulses. ABDOMEN: Soft, nontender, nondistended. No CVA tenderness EXTREMITIES: Normal range of motion. No edema. SKIN: Warm, dry, no rash. NEURO: Alert and oriented x3. PSYCH: Normal mood and affect. <Nik Aldridge MD - Last Filed: 11/06/24 16:18> Course Course Emergency Course: Labs normal. CT borderline whether this could be a 3 mm stone in the distal ureter. Recommend continue use of Flomax at home. Toradol helped his discomfort. Also prescribed some Tylenol with hydrocodone. Follow-up with urology. <Nik Aldridge MD - Last Filed: 11/06/24 16:18> Vital Signs Vital signs: Vital Signs Temperature 97.9 F 11/06/24 13:40 Pulse Rate 63 11/06/24 13:40 Respiratory Rate 16 11/06/24 13:40 Blood Pressure 146/68 H 11/06/24 13:40 Pulse Oximetry 98 11/06/24 13:40 Oxygen Delivery Room Air 11/06/24 13:40 Temperature 97.9 F 11/06/24 13:40 Pulse Rate 63 11/06/24 13:40 Respiratory Rate 16 11/06/24 13:40 Blood Pressure 146/68 H 11/06/24 13:40 Pulse Oximetry 98 11/06/24 13:40 Oxygen Delivery Room Air 11/06/24 13:40 <Eunice Parsons PA-C - Last Filed: 11/06/24 13:44> Vital Signs Temperature 97.9 F 11/06/24 13:40 Pulse Rate 63 11/06/24 13:40 Respiratory Rate 16 11/06/24 13:40 Blood Pressure 146/68 H 11/06/24 13:40 Pulse Oximetry 98 11/06/24 13:40 Oxygen Delivery Room Air 11/06/24 13:40 Temperature 97.9 F 11/06/24 13:40 Pulse Rate 63 11/06/24 13:40 Respiratory Rate 16 11/06/24 13:40 Blood Pressure 146/68 H 11/06/24 13:40 Pulse Oximetry 98 11/06/24 13:40 Oxygen Delivery Room Air 11/06/24 13:40 <Nik Aldridge MD - Last Filed: 11/06/24 16:18> MDM - Back Pain/Injury Lab Data Result diagrams: 11/06/24 14:36 11/06/24 14:36 <Eunice Parsons PA-C - Last Filed: 11/06/24 13:44> Labs: Lab Results 11/06/24 Range/Units 14:36 WBC 7.1 (4.5-10.0) K/mm3 RBC 5.22 (4.6-6.20) M/mm3 Hgb 15.3 (14.0-18.0) g/dL Hct 46.7 (42.0-52.0) % MCV 89.5 (80-100) fl MCH 29.3 (26-34) pg MCHC 32.8 (32-36) g/dl RDW 13.2 (11.5-14.5) % Plt Count 192 (150-375) k/mm3 MPV 11.1 H (7.4-10.4) fl Immature Gran % (Auto) 0.3 (0-0.5) % Neut % (Auto) 59.0 (45.5-73.1) % Lymph % (Auto) 29.9 (18.3-44.2) % [place] % (Auto) 8.7 H (2.6-8.5) % Eos % (Auto) 1.7 (0-4.4) % Baso % (Auto) 0.4 (0.2-1.2) % Lymph # (Auto) 2.11 (0.9-3.2) K/mm3 [place] # (Auto) 0.6 (0.1-0.6) K/mm3 Eos # (Auto) 0.1 (0-0.3) K/mm3 Baso # (Auto) 0.0 (0.0-0.1) K/mm3 Abs Immat Gran (auto) 0.02 (0.00-0.031) K/mm3 Absolute Neuts (auto) 4.2 (1.3-6.7) K/mm3 Absolute Nucleated RBC 0.000 (0.0-0.012) K/mm3 Nucleated RBC % 0.0 (0.0-0.2) % Sodium 142 (137-145) mmol/L Potassium 4.4 (3.4-5.0) mmol/L Chloride 105 (98-107) mmol/L Carbon Dioxide 26 (22-30) mmol/L Anion Gap 11 (4-12) mmol/L BUN 10 (9-20) mg/dL Creatinine 0.59 L (0.7-1.3) mg/dL Estim Creat Clear Calc 92 ml/min Estimated GFR > 60 (59 - ) Glucose 99 (65-110) mg/dL Calcium 9.5 (8.4-10.2) mg/dL Total Bilirubin 0.7 (0.2-1.3) mg/dL AST 35 (17-59) U/L ALT 29 (6-50) U/L Alkaline Phosphatase 68 (38-126) U/L Total Protein 8.0 (6.3-8.2) g/dL Albumin 4.9 (3.5-5.1) g/dL Lipase 53 (23-300) U/L Urine Color Yellow (Yellow) Urine Appearance Clear (Clear) Urine pH 6.0 (5.0-9.0) Ur Specific [place] 1.008 (1.001-1.035) Urine Protein Negative (Negative) mg/dL Urine Glucose (UA) Negative (Negative) mg/dL Urine Ketones Negative (Negative) mg/dL Ur Blood (Man) Negative (Negative) Urine Nitrate Negative (Negative) Urine Bilirubin Negative (Negative) Urine Urobilinogen 0.2 (<2.0) mg/dL Leukocyte Esterase Rfl Trace H (Negative) MARLINE/UL Urine RBC 0-2 (0-2) /hpf Urine WBC 0-5 (0-3) /hpf Ur Squamous Epith Cells None seen (Few) /hpf Urine Bacteria None seen /hpf Urine Casts 0-2 <Eunice Parsons PA-C - Last Filed: 11/06/24 13:44> Lab Results 11/06/24 Range/Units 14:36 WBC 7.1 (4.5-10.0) K/mm3 RBC 5.22 (4.6-6.20) M/mm3 Hgb 15.3 (14.0-18.0) g/dL Hct 46.7 (42.0-52.0) % MCV 89.5 (80-100) fl MCH 29.3 (26-34) pg MCHC 32.8 (32-36) g/dl RDW 13.2 (11.5-14.5) % Plt Count 192 (150-375) k/mm3 MPV 11.1 H (7.4-10.4) fl Immature Gran % (Auto) 0.3 (0-0.5) % Neut % (Auto) 59.0 (45.5-73.1) % Lymph % (Auto) 29.9 (18.3-44.2) % [place] % (Auto) 8.7 H (2.6-8.5) % Eos % (Auto) 1.7 (0-4.4) % Baso % (Auto) 0.4 (0.2-1.2) % Lymph # (Auto) 2.11 (0.9-3.2) K/mm3 [place] # (Auto) 0.6 (0.1-0.6) K/mm3 Eos # (Auto) 0.1 (0-0.3) K/mm3 Baso # (Auto) 0.0 (0.0-0.1) K/mm3 Abs Immat Gran (auto) 0.02 (0.00-0.031) K/mm3 Absolute Neuts (auto) 4.2 (1.3-6.7) K/mm3 Absolute Nucleated RBC 0.000 (0.0-0.012) K/mm3 Nucleated RBC % 0.0 (0.0-0.2) % Sodium 142 (137-145) mmol/L Potassium 4.4 (3.4-5.0) mmol/L Chloride 105 (98-107) mmol/L Carbon Dioxide 26 (22-30) mmol/L Anion Gap 11 (4-12) mmol/L BUN 10 (9-20) mg/dL Creatinine 0.59 L (0.7-1.3) mg/dL Estim Creat Clear Calc 92 ml/min Estimated GFR > 60 (59 - ) Glucose 99 (65-110) mg/dL Calcium 9.5 (8.4-10.2) mg/dL Total Bilirubin 0.7 (0.2-1.3) mg/dL AST 35 (17-59) U/L ALT 29 (6-50) U/L Alkaline Phosphatase 68 (38-126) U/L Total Protein 8.0 (6.3-8.2) g/dL Albumin 4.9 (3.5-5.1) g/dL Lipase 53 (23-300) U/L Urine Color Yellow (Yellow) Urine Appearance Clear (Clear) Urine pH 6.0 (5.0-9.0) Ur Specific [place] 1.008 (1.001-1.035) Urine Protein Negative (Negative) mg/dL Urine Glucose (UA) Negative (Negative) mg/dL Urine Ketones Negative (Negative) mg/dL Ur Blood (Man) Negative (Negative) Urine Nitrate Negative (Negative) Urine Bilirubin Negative (Negative) Urine Urobilinogen 0.2 (<2.0) mg/dL Leukocyte Esterase Rfl Trace H (Negative) MARLINE/UL Urine RBC 0-2 (0-2) /hpf Urine WBC 0-5 (0-3) /hpf Ur Squamous Epith Cells None seen (Few) /hpf Urine Bacteria None seen /hpf Urine Casts 0-2 <Nik Aldridge MD - Last Filed: 11/06/24 16:18> Imaging Data Radiologist's impression: ITS Impressions Abdomen/Pelvis CT 11/06/24 14:02 IMPRESSION: 1. Possible right lower ureteric stone. Follow-up advised. 2. No evidence of appendicitis, diverticulitis or intestinal obstruction. 3. Hepatomegaly. <Nik Aldridge MD - Last Filed: 11/06/24 16:18> Discharge Plan Discharge Clinical Impression: Ureterolithiasis <Eunice Parsons PA-C - Last Filed: 11/06/24 13:44> Patient Disposition: Home <Eunice Parsons PA-C - Last Filed: 11/06/24 13:44> Condition: Stable <Eunice Parsons PA-C - Last Filed: 11/06/24 13:44> Instructions: Kidney Stones (ED), Back Pain (ED) <Eunice Parsons PA-C - Last Filed: 11/06/24 13:44> Additional Instructions: Return to the emergency department if you develop severe abdominal pain, severe nausea and vomiting to the point where you are unable to keep down fluids, if you develop chest pain or difficulty breathing, blood in your stool, dizziness or fainting, or if you develop any other new or concerning symptoms as these could be signs of more serious medical illness. Try to stay well hydrated. <Eunice Parsons PA-C - Last Filed: 11/06/24 13:44> Patient Language: Ukrainian <Eunice Parsons PA-C - Last Filed: 11/06/24 13:44> Prescriptions: No Action tamsulosin [Flomax] 0.4 mg capsule 0.4 mg PO HS 14 Days Qty: 14 0RF aspirin [Adult Low Dose Aspirin] 81 mg tablet,delayed release (DR/EC) 81 mg PO DAILY atorvastatin 40 mg tablet 40 mg PO DAILY calcium carbonate [Calcium 600] 600 mg calcium (1,500 mg) tablet 600 mg PO DAILY cholecalciferol (vitamin D3) 25 mcg (1,000 unit) capsule 25 mcg PO DAILY clopidogrel 75 mg tablet 75 mg PO DAILY multivitamin Capsule 1 cap PO DAILY nitroglycerin 0.4 mg tablet, sublingual 0.4 mg SUBLINGUAL Q5M PRN (Reason: c) Rx Instructions: until response; do not exceed 3 doses per episode mupirocin 2 % ointment 1 applic topical BID PRN (Reason: nose) metoprolol succinate 50 mg tablet extended release 24 hr 50 mg PO DAILY (DME) blood-glucose meter Misc See Rx Instructions .MEDSUPPLY Qty: 1 0RF Rx Instructions: As directed (DME) lancets [Microlet Lancet] Misc See Rx Instructions .ROUTE .COMPLEX Qty: 100 2RF Dose Instruction: TEST ONCE DAILY Rx Instructions: TEST ONCE DAILY doxazosin 8 mg tablet See Rx Instructions .ROUTE .COMPLEX Qty: 90 2RF Dose Instruction: TAKE 1 TABLET BY MOUTH DAILY Rx Instructions: TAKE 1 TABLET BY MOUTH DAILY (DME) Contour Next Test Strips Strip See Rx Instructions .ROUTE .COMPLEX Qty: 100 3RF Dose Instruction: TEST ONCE DAILY Rx Instructions: TEST ONCE DAILY pantoprazole 40 mg tablet,delayed release (DR/EC) 40 mg PO QAM Qty: 90 2RF acyclovir 400 mg tablet 400 mg PO DAILY Qty: 90 2RF methocarbamol 750 mg tablet 750 mg PO QID PRN (Reason: muscle spasm) Qty: 60 0RF <Eunice Parsons PA-C - Last Filed: 11/06/24 13:44> Follow-up/Referrals: Anthony Zhu MD [Primary Care Provider] - Tio Agee MD [Physician] - 1 Week <Eunice Parsons PA-C - Last Filed: 11/06/24 13:44>
--- OUTSIDE RECORDS SUMMARY | 2024-11-06 14:26 | XMS_ITS | Referral Summary ---
Author Organization [facility] [address] Address [address] [place] [address] Care Team Providers Care Claims Administrator Name Role Phone Anthony Zhu MD Primary [...] artery disease of n ative artery of [place] heart with stable angina pectoris 03/18/2017 Chronic [...] on file Legal Sex Male 6:49 AM SAND CUTTER Gender Identity Not on file Sexual Orientation Not on file Last Filed Vital Signs Vital Sign Reading Time Taken Comments Blood Pressure 128/72 08/02/2024 7:48 AM SAND CUTTER Pulse 62 08/02/2024 7:48 AM SAND CUTTER Temperature - - Respiratory Rate - - Oxygen Saturation 96% 08/02/2024 7:48 AM SAND CUTTER Inhaled Oxygen Concentration - - Weight 95.3 kg (210 lb) 08/02/2024 7:48 AM SAND CUTTER Height 177.8 cm (5' 10 ) 08/02/2024 7:48 AM SAND CUTTER Body Mass Index 30.13 08/02/2024 7:48 AM SAND CUTTER Plan of Treatment Not on file Procedures Procedure Name Priority Date/Time Associated Diagnosis Comments POCT LIPID PANEL Routine 02/10/2024 7:57 AM CDT Coronary artery disease of [place] artery of [place] heart with stable angina pectoris Hyperlipidemia associated [...] Relevant to Health Maintenance Insurance MEDICARE MEDICARE [facility] [place] [address] MEDICARE [facility] MEDICARE SUPPLEMENT Care Teams Claims Administrator Relationship Specialty Start Date End Date Anthony Zhu MD [address] [address] [facility] - General 09/24/16
--- OUTSIDE RECORDS SUMMARY | 2024-11-06 14:26 | XMS_ITS | Clinical Summary ---
Author Organization [facility] Address [address] [place] [address] Care Team Providers Care Cafe Site Attendant Name Role Phone Unavailable Primary Care Provider [...]
--- OUTSIDE RECORDS SUMMARY | 2024-11-06 14:26 | XMS_ITS | Clinical Summary ---
Author Organization [facility] [address] Address [address] [place] [address] Care Team Providers Care Garage Door Hanger Name Role Phone Anthony Zhu MD Primary [...] artery disease of n ative artery of [place] heart with stable angina pectoris 03/18/2017 Chronic [...] of : Cerebral aneurysm Alzheimer's disease Mother petros Diabetes Mother petros Heart attack Mother petros Myocardial infa rction; Heart disease Mother petros Stroke Mother petros Stroke; Diabetes Sister 1 cheng Diabetes mellit us; Diabetes Sister 2 rasta Relation Name Status Comments Father Mother petros Sister 1 cheng Sister 2 rasta Social [...] on file Legal Sex Male 6:49 AM GRADUATING MACHINE OPERATOR Gender Identity Not on file Sexual Orientation Not on file Obstetrics History Last Filed Vital Signs Vital Sign Reading Time Taken Comments Blood Pressure 128/72 08/02/2024 7:48 AM GRADUATING MACHINE OPERATOR Pulse 62 08/02/2024 7:48 AM GRADUATING MACHINE OPERATOR Temperature - - Respiratory Rate - - Oxygen Saturation 96% 08/02/2024 7:48 AM GRADUATING MACHINE OPERATOR Inhaled Oxygen Concentration - - Weight 95.3 kg (210 lb) 08/02/2024 7:48 AM GRADUATING MACHINE OPERATOR Height 177.8 cm (5' 10 ) 08/02/2024 7:48 AM GRADUATING MACHINE OPERATOR Body Mass Index 30.13 08/02/2024 7:48 AM GRADUATING MACHINE OPERATOR Plan of Treatment Health Maintenance Due Date [...] 7:57 AM CDT Coronary artery disease of [place] artery of [place] heart with stable angina pectoris Hyperlipidemia associated [...] Relevant to Health Maintenance Insurance MEDICARE MEDICARE [facility] [place] [address] MEDICARE [facility] MEDICARE SUPPLEMENT Care Teams Garage Door Hanger Relationship Specialty Start Date End Date Anthony Zhu MD [address] [facility] [address] [place] [address] PCP - General 09/24/16
[2024-11-06 14:56] LABS: Basophils Percent Auto 0.4 % (0.2-1.2); Eosinophils Absolute Auto 0.1 K/mm3 (0-0.3); Eosinophils Percent Auto 1.7 % (0-4.4); Hematocrit 46.7 % (42.0-52.0); Hemoglobin 15.3 g/dL (14.0-18.0); Immature Granulocyte Absolute 0.02 K/mm3 (0.00-0.031); Immature Granulocyte Percent A 0.3 % (0-0.5); Lymphocytes Absolute Auto 2.11 K/mm3 (0.9-3.2); Lymphocytes Percent Auto 29.9 % (18.3-44.2); Mean Corpuscular HGB Conc 32.8 g/dl (32-36); Mean Corpuscular Hemoglobin 29.3 pg (26-34); Mean Corpuscular Volume 89.5 fl (80-100); Mean Platelet Volume 11.1 fl (7.4-10.4); Monocytes Absolute Auto 0.6 K/mm3 (0.1-0.6); Monocytes Percent Auto 8.7 % (2.6-8.5); Neutrophils Absolute Auto 4.2 K/mm3 (1.3-6.7); Platelet Count Result 192 k/mm3 (150-375); Red Blood Count 5.22 M/mm3 (4.6-6.20); Red Cell Distribution Width 13.2 % (11.5-14.5); White Blood Count 7.1 K/mm3 (4.5-10.0)
[2024-11-06 15:03] LABS: Add Urine Microscopic? YES; Appearance Urine Clear (Clear); Bacteria Urine None Seen /hpf; Bilirubin Urine Negative (Negative); Blood Urine Negative (Negative); Color Urine Yellow (Yellow); Glucose Urine UA Negative (Negative); Ketones Urine Negative (Negative); Leukocyte Esterase Ur Trace LEU/UL (Negative); Nitrate Urine Negative (Negative); Non Pathogenic Casts 0-2; Protein Urine Negative (Negative); RBC Urine 0-2 /hpf (0-2); Specific Grav Ur 1.008 (1.001-1.035); Squamous Epithelial Cell Urine None Seen /hpf (Few); Urobilinogen Urine 0.2 mg/dL (<2.0); WBC Urine 0-5 /hpf (0-3)
[2024-11-06 15:10] LABS: Alanine Aminotransferase 29 U/L (6-50); Albumin Level 4.9 g/dL (3.5-5.1); Alkaline Phosphatase 68 U/L (38-126); Anion Gap 11 mmol/L (4-12); Aspartate Amino Transferase 35 U/L (17-59); Bilirubin,Total 0.7 mg/dL (0.2-1.3); Blood Urea Nitrogen 10 mg/dL (9-20); Calcium 9.5 mg/dL (8.4-10.2); Carbon Dioxide 26 mmol/L (22-30); Chloride 105 mmol/L (98-107); Estimated CRCL calculation 92 ml/min; Estimated Glomerular Filt Rate > 60; Glucose 99 mg/dL (65-110); Lipase 53 U/L (23-300); Potassium 4.4 mmol/L (3.4-5.0); Sodium 142 mmol/L (137-145)
[2024-11-06] MEDS: SODIUM CHLORIDE 0.9% IV 1,000 ML 999 ML IV CONT (15:23)
[2024-11-06] MEDS: KETOROLAC 15 MG/ML VIAL (*BKC) IV PUSH (15:24)
[2024-11-06 16:16] VITALS: BP 131/70; PULSE 59; RESP 16; O2SAT 97
== END 2024-11-06 16:38 | disposition home or self-care (01) ==
PROVIDERS: Physician Assistant; Emergency Provider Emergency Medicine; PCP Family Medicine
DX: N20.1 Calculus of ureter (principal); E11.9 Type 2 diabetes mellitus without complications; N40.0 Benign prostatic hyperplasia without lower urinary tract symptoms; K21.9 Gastro-esophageal reflux disease without esophagitis; E78.5 Hyperlipidemia, unspecified; I11.0 Hypertensive heart disease with heart failure; I50.9 Heart failure, unspecified; I25.10 Atherosclerotic heart disease of native coronary artery without angina pectoris
CPT/HCPCS: 36415; 74176; 80053; 81001; 83690; 85025; 96361; 96374; 99284; J1885; J7030

== ENCOUNTER 2024-12-07 14:57 | Outpatient (CLI) | payer MEDICARE, SELFPAY ==
--- NOTE | ~2024-12-07 | XR_ITS ---
XR abdomen/kub 1V 12/07/2024 15:43 Indication: Right ureteral stone Procedure: KUB Comparison: 04/19/2013 Findings: Bowel gas pattern nonobstructive. There are left renal stones. Moderate colonic fecal loadi ng. Severe lower thoracic and lumbar spondylosis with levoscoliosis. There are pelvic phleboliths. No definite stones are identified in the expected course of ureters. Impression: 1: Left nephrolithiasis. Reviewed, dictated and finalized at location B. Impression: 1: Left nephrolithiasis.
--- NOTE | ~2024-12-07 | CT_ITS ---
Non-contrast CT scan of the Abdomen and Pelvis Clinical indication: Right ureteral stone Technique: 2.5 mm axial scans were obtained through the abdomen and pelvis without intravenous or or al contrast. Dose reduction technique was used on this scan by utilizing automated exposure control a nd iterative reconstruction technique. The dose-length product (DLP) was 257.38 mGy-cm. COMPARISON: 11/06/2024 Findings: Images through the lung bases reveal no abnormalities. There is no evidence of renal or ureteral calculi. The kidneys and the ureters are nondilated. The liver, spleen, pancreas, gallbladder, and adrenals appear normal. There is no aortic aneurysm. There is no evidence of bowel obstruction. Images through the pelvis were performed. There is no evidence of ascites or lymphadenopathy. Urinary bladder unremarkable. No pelvic mass seen. Impression: No significant abnormality seen. Reviewed, dictated and finalized at [facility]. Impression: No significant abnormality seen.
--- OUTSIDE RECORDS SUMMARY | 2024-12-07 15:04 | XMS_ITS | Referral Summary ---
Author Organization [facility] [address] Address [address] [place] [address] Care Team Providers Care Food Production Worker Name Role Phone Anthony Zhu MD Primary Care Provider Encounters Date Type Department Care Team Description 11/29/2024 Orders Only [facility] Medical [facility] Cardiology [address] [place] [address] Provider, MD Kadie from Last 3 Months Allergies Active Allergy Reactions Criticality Noted Date Comments Lactose Angioedema,Diarrhea,Stomach upset High Nuts Redness,Stomach upset Low 06/27/1999 Medications calcium carbonate (CALCIUM 600) 1,500 mg (600 mg of elemental calcium) tablet take 1 by Oral route 2 times every day 0 0 5 Active cholecalcifero l (cholecalcifer ol) 1,000 unit tablet take 1 by oral route once 0 0 5 Active aspirin (ASPIRIN LOW DOSE) 81 mg tablet take 1 tablet by oral route every day 0 0 5 Active acyclovir (ZOVIRAX) 400 mg tablet take 1 tablet by oral route every day for 10 days 0 0 5 Active multivitamin capsule Take 1 capsule by mouth daily Active pantoprazole DR (PROTONIX) 40 mg EC tablet Take 1 tablet (40 mg total) by mouth every morning 3 Active atorvastatin (LIPITOR) 40 mg tablet TAKE 1 TABLET(40 MG) BY MOUTH DAILY 90 tablet 2 4 Active clopidogreL (PLAVIX) 75 mg tablet TAKE 1 TABLET(75 MG) BY MOUTH DAILY 90 tablet 2 4 Active metoprolol XL (TOPROL-XL) 50 mg extended release tablet TAKE 1 TABLET(50 MG) BY MOUTH DAILY 90 tablet 2 4 Active nitroglycerin (NITROSTAT) 0.[address] 1 tablet (0.4 mg total) under the tongue every 5 (five) minutes as needed for chest pain (May repeat every 5 minutes with 3 doses maximum.) 25 tablet 1 5 Active doxazosin (CARDURA) 8 mg tablet TAKE 1 TABLET(8 MG) BY MOUTH EVERY NIGHT 90 tablet 5 Active doxazosin (CARDURA) 8 mg tablet TAKE 1 TABLET(8 MG) BY MOUTH EVERY NIGHT 90 tablet 5 11/16/19 25 Discontinued Active Problems Problem Noted Date Diagnosed Date Lipid screening 01/28/2023 Atypical chest pain 01/28/2023 Hyperlipidemia associated with type 2 diabetes tay alva 06/25/2020 Coronary artery disease of n ative artery of [place] heart with stable angina pectoris 03/18/2017 Chronic [...] on file Legal Sex Male 6:49 AM CATALOG SPECIALIST Gender Identity Not on file Sexual Orientation Not on file Last Filed Vital Signs Vital Sign Reading Time Taken Comments Blood Pressure 128/72 08/02/2024 7:48 AM CATALOG SPECIALIST Pulse 62 08/02/2024 7:48 AM CATALOG SPECIALIST Temperature - - Respiratory Rate - - Oxygen Saturation 96% 08/02/2024 7:48 AM CATALOG SPECIALIST Inhaled Oxygen Concentration - - Weight 95.3 kg (210 lb) 08/02/2024 7:48 AM CATALOG SPECIALIST Height 177.8 cm (5' 10) 08/02/2024 7:48 AM CATALOG SPECIALIST Body Mass Index 30.13 08/02/2024 7:48 AM CATALOG SPECIALIST Plan of Treatment Not on file Procedures Procedure Name Priority Date/Time Associated Diagnosis Comments POCT LIPID PANEL Routine 02/10/2024 7:57 AM CDT Coronary artery disease of [place] artery of [place] heart with stable angina pectoris Hyperlipidemia associated [...] Most Recently Relevant [place] [address] MEDICARE MEDICARE [facility] MEDICARE SUPPLEMENT MEDICARE [facility] MEDICARE SUPPLEMENT Care Teams Food Production Worker Relationship Specialty Start Date End Date Anthony Zhu MD [address] [facility] [address] [place] [id number] PCP - General 09/24/16
--- OUTSIDE RECORDS SUMMARY | 2024-12-07 15:04 | XMS_ITS | Clinical Summary ---
Author Organization [facility] [address] Address [address] [place] [address] Care Team Providers Care Editorial Assistant Name Role Phone Anthony Zhu MD Primary [...] Hyperlipidemia associated with type 2 diabetes m natalieitus 06/25/2020 Coronary artery disease of n ative artery of [place] heart with stable angina pectoris 03/18/2017 Chronic obstructive pulmonary disease 03/18/2017 Palpitations 03/18/2017 Cough 07/25/2014 Overview (09/30/2016): Cough Benign prostatic hyperplasia 07/25/2014 Overview (09/30/2016): BPH (benign prostatic hyperplasia) Dyspnea on exertion 07/25/2014 Overview (09/30/2016): Exertional dyspnea Encounters Date Type Department Care Team Description 11/29/2024 Orders Only [facility] Medical [facility] Cardiology [address] [place] [address] Provider, MD Kadie from Last 3 Months Surgical History Surgery Date Site/Laterality Comments JOINT [...] of : Cerebral aneurysm Alzheimer's disease Mother jacksons gap Diabetes Mother jacksons gap Heart attack Mother jacksons gap Myocardial infa rction; Heart disease Mother jacksons gap Stroke Mother jacksons gap Stroke; Diabetes Sister 1 prosper Diabetes mellit us; Diabetes Sister 2 rasta Relation Name Status Comments Father Mother dinh Sister 1 cheng Sister 2 rasta Social [...] on file Legal Sex Male 6:49 AM BULLET SWAGING MACHINE OPERATOR Gender Identity Not on file Sexual Orientation Not on file Obstetrics History Last Filed Vital Signs Vital Sign Reading Time Taken Comments Blood Pressure 128/72 08/02/2024 7:48 AM BULLET SWAGING MACHINE OPERATOR Pulse 62 08/02/2024 7:48 AM BULLET SWAGING MACHINE OPERATOR Temperature - - Respiratory Rate - - Oxygen Saturation 96% 08/02/2024 7:48 AM BULLET SWAGING MACHINE OPERATOR Inhaled Oxygen Concentration - - Weight 95.3 kg (210 lb) 08/02/2024 7:48 AM BULLET SWAGING MACHINE OPERATOR Height 177.8 cm (5' 10) 08/02/2024 7:48 AM BULLET SWAGING MACHINE OPERATOR Body Mass Index 30.13 08/02/2024 7:48 AM BULLET SWAGING MACHINE OPERATOR Plan of Treatment Health Maintenance [...] 7:57 AM CDT Coronary artery disease of [place] artery of [place] heart with stable angina pectoris Hyperlipidemia associated [...] Relevant to Health Maintenance Insurance MEDICARE MEDICARE [facility] [place] [address] MEDICARE [facility] MEDICARE SUPPLEMENT Care Teams Editorial Assistant Relationship Specialty Start Date End Date Anthony Zhu MD [address] [address] PCP - General 09/24/16
== END 2024-12-07 14:58 | disposition home or self-care (01) ==
PROVIDERS: PCP Family Medicine; Visit Provider Urology
DX: N20.1 Calculus of ureter (principal)
CPT/HCPCS: 74018; 74176

== ENCOUNTER 2025-01-15 12:36 | Day surgery (SDC) | payer MEDICARE, SELFPAY ==
[2025-01-15] VITALS (7 sets, daily range): BP systolic 123–157; BP diastolic 71–86; PULSE 66–89; RESP 12–16; TEMP 36.3–36.6; O2SAT 98–100; BMI 28.8
--- OUTSIDE RECORDS SUMMARY | 2025-01-15 12:42 | XMS_ITS | Clinical Summary ---
Author Organization [facility] [address] Address [address] [place] [address] Care Team Providers Care Oracle E Business Developer Name Role Phone Anthony Zhu MD Primary [...] MG) BY MOUTH EVERY NIGHT 90 tablet 11/15/2024 Active Active Problems Problem Noted Date Diagnosed Date Lipid screening 01/28/2023 Atypical chest pain 01/28/2023 Hyperlipidemia associated with type 2 diabetes m ellitus 06/25/2020 Coronary artery disease of n ative artery of [place] heart with stable angina pectoris 03/18/2017 Chronic obstructive pulmonary disease 03/18/2017 Palpitations 03/18/2017 Cough 07/25/2014 Overview (09/30/2016): Cough Benign prostatic hyperplasia 07/25/2014 Overview (09/30/2016): BPH (benign prostatic hyperplasia) Dyspnea on exertion 07/25/2014 Overview (09/30/2016): Exertional dyspnea Encounters Date Type Department Care Team Description 11/29/2024 Orders Only [facility] Medical Group Cardiology [address] [place] [address] Provider, MD Kadie from Last 3 Months [...] of : Cerebral aneurysm Alzheimer's disease Mother new waverly Diabetes Mother dinh Heart attack Mother new waverly Myocardial infa rction; Heart disease Mother new waverly Stroke Mother new waverly Stroke; Diabetes Sister 1 cheng Diabetes mellit us; Diabetes Sister 2 rasta Relation Name Status Comments Father Mother new waverly Sister 1 cheng Sister 2 rasta Social [...] on file Legal Sex Male 6:49 AM TANGIBLE PERSONAL PROPERTY APPRAISER Gender Identity Not on file Sexual Orientation Not on file Obstetrics History Last Filed Vital Signs Vital Sign Reading Time Taken Comments Blood Pressure 128/72 08/02/2024 7:48 AM TANGIBLE PERSONAL PROPERTY APPRAISER Pulse 62 08/02/2024 7:48 AM TANGIBLE PERSONAL PROPERTY APPRAISER Temperature - - Respiratory Rate - - Oxygen Saturation 96% 08/02/2024 7:48 AM TANGIBLE PERSONAL PROPERTY APPRAISER Inhaled Oxygen Concentration - - Weight 95.3 kg (210 lb) 08/02/2024 7:48 AM TANGIBLE PERSONAL PROPERTY APPRAISER Height 177.8 cm (5' 10) 08/02/2024 7:48 AM TANGIBLE PERSONAL PROPERTY APPRAISER Body Mass Index 30.13 08/02/2024 7:48 AM TANGIBLE PERSONAL PROPERTY APPRAISER Plan of Treatment Health Maintenance Due Date [...] 7:57 AM CDT Coronary artery disease of [place] artery of [place] heart with stable angina pectoris Hyperlipidemia associated [...] Relevant to Health Maintenance Insurance MEDICARE MEDICARE [facility] [place] [address] MEDICARE [facility] MEDICARE SUPPLEMENT Care Teams Oracle E Business Developer Relationship Specialty Start Date End Date Anthony Zhu MD [address] [place] [address] PCP - General 09/24/16
--- OUTSIDE RECORDS SUMMARY | 2025-01-15 12:42 | XMS_ITS | Encounter Summary ---
Author Organization [facility] Address [address] [place] [address] Care Team Providers Care Footwear Sales Coordinator Name Role Phone Anthony Zhu MD Primary Care Provider Encounter Details Date Type Department Care Team (Late st Contact Info) Description 09/26/2023 Orders Only [facility] Health Information Management [address] [place] [address] Scanning, Provider Social History Tobacco Use Types Packs/Day Years Used Date Smoking Tobacco: Former Cigarettes 1 35 0 07/29/1966 - 07/29/2001 Smokeless Tobacco: Former Alcohol Use Standard Drinks/Week Comments Yes 3 (1 standard drink = 0.6 oz pur e alcohol) occassionally Sex and Gender Information Value Date Recorded Sex Assigned at Not on file Legal Sex Male 6:49 AM PROJECTION ENGINEER Gender Identity Not on file Sexual Orientation Not on file documented as of this encounter Plan of Treatment Not on file documented as of this encounter Procedures Procedure Name Priority Date/Time Associated Diagnosis Comments SCAN - LABS 09/26/2023 documented in this encounter Results * SCAN - LABS (09/26/2023) Provider Scanning Final Result documented in this encounter Visit Diagnoses Not on filedocumented in this encounter Care Teams Footwear Sales Coordinator Relationship Specialty Start Date End Date Anthony Zhu MD [address] [facility] [address] [place] [address] PCP - General 3/31/17 documented as of this encounter
--- OUTSIDE RECORDS SUMMARY | 2025-01-15 12:42 | XMS_ITS | Clinical Summary ---
Author Organization [facility] Address [address] [place] [address] Care Team Providers Care Comb Setter Name Role Phone Unavailable Primary Care Provider [...]
--- OUTSIDE RECORDS SUMMARY | 2025-01-15 12:42 | XMS_ITS | Encounter Summary ---
Author Organization [facility] Address [address] [place] [address] Care Team Providers Care Flame Cutting Machine Operator Helper Name Role Phone Anthony Zhu MD Primary Care Provider Encounter Details Date Type Department Care Team (Late st Contact Info) Description 03/19/2024 Orders Only [facility] Health Information Management [address] [place] [id number] Scanning, Provider Social History Tobacco Use Types Packs/Day Years Used Date Smoking Tobacco: Former Cigarettes 1 35 0 07/29/1966 - 07/29/2001 Smokeless Tobacco: Former Alcohol Use Standard Drinks/Week Comments Yes 3 (1 standard drink = 0.6 oz pur e alcohol) occassionally Sex and Gender Information Value Date Recorded Sex Assigned at Not on file Legal Sex Male 6:49 AM NUTRITION AIDE Gender Identity Not on file Sexual Orientation Not on file documented as of this encounter Plan of Treatment Not on file documented as of this encounter Procedures Procedure Name Priority Date/Time Associated Diagnosis Comments SCAN - LABS 03/19/2024 documented in this encounter Results * SCAN - LABS (03/19/2024) Provider Scanning Final Result documented in this encounter Visit Diagnoses Not on filedocumented in this encounter Care Teams Flame Cutting Machine Operator Helper Relationship Specialty Start Date End Date Anthony Zhu MD [address] [facility] [address] [place] [address] PCP - General 3/31/17 documented as of this encounter
--- OUTSIDE RECORDS SUMMARY | 2025-01-15 12:42 | XMS_ITS | Referral Summary ---
Author Organization [facility] [address] Address [address] [place] [address] Care Team Providers Care Isotope Hydrologist Name Role Phone Anthony Zhu MD Primary Care Provider Encounters Date Type Department Care Team Description 11/29/2024 Orders Only [facility] Medical Group Cardiology [address] [place] [address] Provider, MD Kadie from Last [...] 01/28/2023 Hyperlipidemia associated with type 2 diabetes aty alva 06/25/2020 Coronary artery disease of n ative artery of [place] heart with stable angina pectoris 03/18/2017 Chronic [...] on file Legal Sex Male 6:49 AM HOT KETTLE TENDER Gender Identity Not on file Sexual Orientation Not on file Last Filed Vital Signs Vital Sign Reading Time Taken Comments Blood Pressure 128/72 08/02/2024 7:48 AM HOT KETTLE TENDER Pulse 62 08/02/2024 7:48 AM HOT KETTLE TENDER Temperature - - Respiratory Rate - - Oxygen Saturation 96% 08/02/2024 7:48 AM HOT KETTLE TENDER Inhaled Oxygen Concentration - - Weight 95.3 kg (210 lb) 08/02/2024 7:48 AM HOT KETTLE TENDER Height 177.8 cm (5' 10) 08/02/2024 7:48 AM HOT KETTLE TENDER Body Mass Index 30.13 08/02/2024 7:48 AM HOT KETTLE TENDER Plan of Treatment Not on file Procedures Procedure Name Priority Date/Time Associated Diagnosis Comments POCT LIPID PANEL Routine 02/10/2024 7:57 AM CDT Coronary artery disease of [place] artery of [place] heart with stable angina pectoris Hyperlipidemia associated [...] Capillary blood 02/10/2024 7 :57 AM CDT us Adalid Fairchild MD POINT OF CARE TEST ORDERA BLES Final Result from Last 3 Months or Most Recently Relevant to Health [place] [address] MEDICARE MEDICARE [facility] MEDICARE SUPPLEMENT MEDICARE [facility] MEDICARE SUPPLEMENT Care Teams Isotope Hydrologist Relationship Specialty Start Date End Date Anthony Zhu MD [address] [place] [address] PCP - General 09/24/16
--- NOTE | 2025-01-15 13:47 | ECG_ITS ---
Test Date: 2025-01-15 14:28:56 Measurements Intervals [place] Rate: 64 P: 25 TN: 153 QRS: 45 QRSD: 84 T: 3 QT: 399 QTc: 412 Interpretive Statements SINUS RHYTHM WITH OCCASIONAL VENTRICULAR PREMATURE COMPLEXES No previous ECG available for comparison Electronically Signed On 01-15-2025 17:08:17 CDT by Moo Cantu M.D.
[2025-01-15 14:25] LABS: Hematocrit 41.6 % (42.0-52.0); Hemoglobin 13.9 g/dL (14.0-18.0)
[2025-01-15 14:43] LABS: Anion Gap 8 mmol/L (4-12); Blood Urea Nitrogen 10 mg/dL (9-20); Calcium 9.3 mg/dL (8.4-10.2); Carbon Dioxide 25 mmol/L (22-30); Chloride 104 mmol/L (98-107); Estimated CRCL calculation 88 ml/min; Estimated Glomerular Filt Rate > 60; Glucose 103 mg/dL (65-110); Potassium 3.9 mmol/L (3.4-5.0); Sodium 137 mmol/L (137-145)
[2025-01-15] MEDS: ACETAMINOPHEN 500 MG TABLET 1000 MG PO (15:42)
[2025-01-15] MEDS: LACTATED RINGERS 1,000 ML 30 ML IV CONT ×2 (15:43→18:40)
--- NOTE | 2025-01-15 16:00 | P.PNAN_ITS ---
Anes - Initial Pre Proc Eval Procedure: Operation Date: 01/15/25 17:00 Proposed Procedures p Nasal Endoscopy, Complex Cauterization Of Epistaxis - Serg Vergara MD Date/Time: 01/15/25 16:00 Surgeon: Serg Vergara MD Pre Op Diagnosis: Epistaxis Patient Data Age: 79 Gender: M Height: 1.78 m Weight: 91.1 kg Last Vital Signs Temp 97.4 F L 01/15/25 13:30 Pulse 67 01/15/25 13:30 Resp 16 01/15/25 13:30 BP 143/74 H 01/15/25 13:30 Pulse Ox 98 01/15/25 13:30 O2 Del Method Room Air 01/15/25 13:30 Allergies Allergy/AdvReac Type Severity Reaction Status Date / Time lactose Allergy Intermediate Gastrointestinal Verified 01/15/25 14:26 Upset peanut Allergy Intermediate digestive Verified 01/15/25 14:26 issues lactase Allergy Unknown Nausea Verified 01/15/25 14:26 Home Medications ?Medication ?Instructions ?Recorded ?Confirmed ?Type aspirin 81 mg tablet,delayed 81 mg PO DAILY 08/23/19 01/15/25 History release (Adult Low Dose Aspirin) atorvastatin 40 mg tablet 40 mg PO DAILY 08/23/19 01/15/25 History calcium carbonate (Calcium 600) 600 mg PO DAILY 08/23/19 01/15/25 History cholecalciferol (vitamin D3) 25 25 mcg PO DAILY 08/23/19 01/15/25 History mcg (1,000 unit) capsule clopidogrel 75 mg tablet 75 mg PO DAILY 08/23/19 01/15/25 History multivitamin 1 cap PO DAILY 08/23/19 01/15/25 History nitroglycerin 0.4 mg sublingual 0.4 mg sublingual Q5M PRN c 08/23/19 01/15/25 History tablet blood-glucose meter #1 ea 03/11/21 01/15/25 Rx metoprolol succinate 50 mg 50 mg PO DAILY 07/24/21 01/15/25 History tablet,extended release 24 hr lancets (Microlet Lancet) #100 ea 12/01/21 01/15/25 Rx pantoprazole 40 mg tablet,delayed 40 mg PO QAM #90 tabs 11/23/24 01/15/25 Rx release blood sugar diagnostic (Contour #100 strips 01/10/25 01/15/25 Rx Next Test Strips) acyclovir 400 mg tablet 400 mg PO DAILY #90 tabs 01/14/25 01/15/25 Rx doxazosin 8 mg tablet See Rx Instructions .Route .COMPLEX 01/15/25 01/15/25 History Laboratory Tests 01/15/25 01/15/25 01/15/25 13:59 14:10 14:15 Hgb 13.9 L g/dL (14.0-18.0) Hct 41.6 L % (42.0-52.0) Sodium 137 mmol/L (137-145) Potassium 3.9 mmol/L (3.4-5.0) Chloride 104 mmol/L (98-107) Carbon Dioxide 25 mmol/L (22-30) Anion Gap 8 mmol/L (4-12) BUN 10 mg/dL (9-20) Creatinine 0.62 L mg/dL (0.7-1.3) Estim Creat Clear Calc 88 ml/min Estimated GFR > 60 (59 - ) Glucose 103 mg/dL (65-110) POC Capillary Glucose 97 mg/dl (65-105) Calcium 9.3 mg/dL (8.4-10.2) Patient hx anesthesia problems: none Family hx anesthesia problems: none Results Review: All pre-operative results and documents have been reviewed as part of the pre- operative evaluation. [facility] Past Medical History Medical History Diabetes Controlled diabetes mellitus Aneurysm History of left heart catheterization BPH (benign prostatic hyperplasia) GERD (gastroesophageal reflux disease) IFG (impaired fasting glucose) HLD (hyperlipidemia) Hypertension with heart disease Coronary artery disease Surgical History Surgical History S/P right knee arthroscopy 2011 S/P right unicompartmental knee replacement 2011 History of shoulder surgery Right rotator cuff repair 2013- Dr. Martinez Family History Family History Father AAA (abdominal aortic aneurysm) Mother Diabetes mellitus Cerebrovascular accident Heart disease Sibling Diabetes mellitus Sibling Patient's sister is in good health Father Family history of aortic aneurysm Mother Family history of diabetes mellitus in first degree relative Social History Social History Social History: Smoking packs per day: 1 Smoking cigarettes per day: 20.0 Years smoked: 35 Smoking pack-years: 35.00 Smoking status: Former smoker Tobacco type: cigarettes Second hand tobacco smoke exposure: Yes Smoking end date: 06/27/02 Additional smoking assessment comments: Smoked for 35 years0 Alcohol intake: current Alcohol use details: occasionally Substance use: never Substance use type: does not use Do You Feel Safe in your Home?: Yes Lack of Transportation: No Lack of Food: Never True Current Housing: I Have Housing Concerned About Future Housing: No Difficulty Paying Gas/Electric Bills: No Difficulty Paying for Meds: No Currently Unemployed: YES Education: High School Diploma/GED Difficulty w/ Childcare or Family Care: No Living arrangements: with family Additional living arrangements comments: Occupation/Education: retired Gender identity (if verbalized by the patient): Male Sexual Orientation (if Verbalized by the Patient): Straight or Heterosexual Spiritual care concerns: No Anes - Eval Final PreProcedure Day of Procedure 01/15/25 16:00 Patient weight: overweight Lungs: normal air movement Airway: Mallampati scale class II and special considerations (Upper and lower dentures. ) Neurological: alert and oriented Last oral intake: >/= 8 hours ASA classification: III Emergent: yes Anesthetic plan: proceed Anesthesia type and monitoring: general ETT and standard monitoring Results Review: All pre-operative results and documents have been reviewed as part of the pre-operative evaluation. CAD noted based on prev cath, not amendable to PTCA. DM fsbs 97, ex smoker quit 2001. Pt w epistaxis and added on from the office. Stable in preop area. Informed Consent: The patient's anesthetic plan and its attendant risks and benefits were discussed with the patient/family/POA. Questions were solicited and answers provided to the satisfaction of the patient/family/POA.
--- NOTE | 2025-01-15 17:34 | WPDHPUPDATE1 ---
History and Physical Update Update Date/Time: 01/15/25 17:34 History and Physical has been reviewed, including an updated exam of the patient. There are NO changes in the patient's condition. Risks, benefits, and alternatives have been discussed and questions answered. Patient agrees to proceed with procedure.
[2025-01-15] MEDS: ceFAZolin 2 GM in SODIUM CHLORIDE 0.9% IV 50 ML 100 ML IVPB (18:09)
--- NOTE | 2025-01-15 18:41 | P.OP_ITS ---
Procedure Note - Detailed Date of Procedure 01/15/25 Pre-op Diagnosis Epistaxis Post-op Diagnosis Same Procedure Performed Bilateral nasal endoscopy, nasal cautery left-sided anterior complex Surgeon Serg Vergara MD Anesthesia General Indications See above Findings Small arterial left anterior nasal septum cauterized with Coblator Description of Procedure Patient and consent identified confirmed in preop. Patient brought to the operating. Time-out performed. General anesthesia induced endotracheal tube secured. Patient prepped draped position procedure confirmed 2nd time-out performed. 0 degree endoscope utilized right-sided viewed scant bleeding Afrin- soaked pledget placed bleeding. Left-sided viewed the anterior vessel was touched it began to bleed I Cobra laid this on coagulation low setting for several seconds and several different areas in a complex fashion. The bleeding stopped as able to scrape down to the septum no blood vessel persisted. Bleeding controlled blood loss 1 cc. I performed all dictated portions of procedure. Mupirocin was placed bilaterally. Care the patient given back to Anesthesiology. Patient taken to PACU. Estimated Blood Loss 1 Drains No Packing No Pathology None sent Complications No immediate complications Condition Stable Disposition PACU [facility] Billing Surgery - Charge Forward: Surgery Billing
== END 2025-01-15 19:49 | disposition home or self-care (01) ==
PROVIDERS: Anesthesiology; PCP Family Medicine; Visit Provider Otolaryngology
PROC: (CPT 31238; principal; 2025-01-15 17:00)
DX: J34.89 Other specified disorders of nose and nasal sinuses (principal); E78.5 Hyperlipidemia, unspecified; I11.0 Hypertensive heart disease with heart failure; I25.10 Atherosclerotic heart disease of native coronary artery without angina pectoris; E11.9 Type 2 diabetes mellitus without complications; N40.0 Benign prostatic hyperplasia without lower urinary tract symptoms; K21.9 Gastro-esophageal reflux disease without esophagitis; Z79.82 Long term (current) use of aspirin; Z79.02 Long term (current) use of antithrombotics/antiplatelets; Z79.891 Long term (current) use of opiate analgesic; Z79.1 Long term (current) use of non-steroidal anti-inflammatories (NSAID); Z98.890 Other specified postprocedural states; Z87.891 Personal history of nicotine dependence; Z86.79 Personal history of other diseases of the circulatory system; Z82.49 Family history of ischemic heart disease and other diseases of the circulatory system
CPT/HCPCS: 31238; 36415; 80048; 82948; 85014; 85018; 93005; J0690; A9270; J0330; J1100; J1596; J2405; J2704; J3010; J7050; J7120

== ENCOUNTER 2025-06-02 08:13 | Emergency (ER) | payer MEDICARE, SELFPAY ==
--- NOTE | 2025-06-02 08:13 | ED.EYEPROB ---
HPI - Eye Problem General Chief complaint: Eye Problems Stated complaint: Right Eye Irritation Time Seen by Provider: 06/02/25 08:13 Source: patient Mode of arrival: ambulatory Limitations: no limitations History of Present Illness HPI Narrative: Kenny is a 79-year-old male patient presenting to the clinic today with complaints right eye irritation x2 days. He reports he thinks he may have pinkeye. Is he woke up this morning with some white crusting of his eye. States his eyelid has been painful and itchy. Does have some blurry vision at times. Denies any fevers, chills, body aches. No known exposure to any one with conjunctivitis. Has not been completing any treatments home for his symptoms. Related Data Home Medications ?Medication ?Instructions ?Recorded ?Confirmed ?Last Taken ?Type aspirin 81 mg tablet,delayed 81 mg PO DAILY 08/23/19 05/08/25 01/15/25 History release (Adult Low Dose Aspirin) atorvastatin 40 mg tablet 40 mg PO DAILY 08/23/19 05/08/25 01/15/25 History calcium carbonate (Calcium 600) 600 mg PO DAILY 08/23/19 05/08/25 01/15/25 History cholecalciferol (vitamin D3) 25 25 mcg PO DAILY 08/23/19 05/08/25 01/15/25 History mcg (1,000 unit) capsule clopidogrel 75 mg tablet 75 mg PO DAILY 08/23/19 05/08/25 01/15/25 History nitroglycerin 0.4 mg sublingual 0.4 mg sublingual Q5M PRN c 08/23/19 05/08/25 08/02/21 06:00 History tablet metoprolol succinate 50 mg 50 mg PO DAILY 07/24/21 05/08/25 01/15/25 History tablet,extended release 24 hr doxazosin 8 mg tablet See Rx Instructions .Route .COMPLEX 01/15/25 05/08/25 01/14/25 History Allergies Allergy/AdvReac Type Severity Reaction Status Date / Time lactose Allergy Intermediate Gastrointestinal Verified 06/02/25 08:29 Upset peanut Allergy Intermediate digestive Verified 06/02/25 08:29 issues lactase Allergy Unknown Nausea Verified 06/02/25 08:29 Review of Systems Review of Systems: Pertinent positives per HPI. Patient denies any fever, chills, rash, headache, dizziness, cough, shortness of breath, chest pain, palpitations, nausea, vomiting, diarrhea, constipation, abdominal pain, or any urinary issues. FOR[facility] Past Medical History Medical History Diabetes Controlled diabetes mellitus Aneurysm History of left heart catheterization BPH (benign prostatic hyperplasia) GERD (gastroesophageal reflux disease) IFG (impaired fasting glucose) HLD (hyperlipidemia) Hypertension with heart disease Coronary artery disease Surgical History Surgical History S/P right knee arthroscopy 2011 S/P right unicompartmental knee replacement 2011 History of shoulder surgery Right rotator cuff repair 2013- Dr. Martinez Family History Family History Father AAA (abdominal aortic aneurysm) Mother Diabetes mellitus Cerebrovascular accident Heart disease Sibling Diabetes mellitus Sibling Patient's sister is in good health Father Family history of aortic aneurysm Mother Family history of diabetes mellitus in first degree relative Social History Social History Social History: Smoking packs per day: 1 Smoking cigarettes per day: 20.0 Years smoked: 35 Smoking pack-years: 35.00 Smoking status: Former smoker Tobacco type: cigarettes Second hand tobacco smoke exposure: Yes Smoking end date: 06/27/02 Additional smoking assessment comments: Smoked for 35 years0 Alcohol intake: current Alcohol use details: occasionally Substance use: never Substance use type: does not use Lack of Transportation: No Lack of Food: Never True Current Housing: I Have Housing Concerned About Future Housing: No Difficulty Paying Gas/Electric Bills: No Difficulty Paying for Meds: No Currently Unemployed: YES Education: High School Diploma/GED Difficulty w/ Childcare or Family Care: No Living arrangements: with family Additional living arrangements comments: Occupation/Education: retired Gender identity (if verbalized by the patient): Male Sexual Orientation (if Verbalized by the Patient): Straight or Heterosexual Spiritual care concerns: No Comments At the time of my signature, I reviewed and agree with the nursing past medical, surgical, social, and family history. There is no relevant family history pertinent to the patient complaint. Exam Narrative: General: Well-developed, well nourished, in no apparent distress Head: Normocephalic, atraumatic Eyes: Pupils equally round and reactive to light bilaterally, EOM intact, sclera and conjunctive clear, no discharge, left lids normal, right upper lid red, swelling, tenderness to palpation, with mild erythema-redness visually noted around the hair follicles of the right upper eyelid with lid tenderness. No visible pustule at this time. Ears: TMs intact and clear, ear canals clear, no drainage, grossly hearing normal. Nose: Nares patent, no discharge, no inflammation, no sinus tenderness. Mouth: Oral pharynx without lesions or masses, good dentition, MMM. Neck: Supple, trachea midline, no enlargement of anterior or posterior cervical nodes, no thyroid masses or goiter palpable. Cardio: Regular rate and rhythm, s1 and s2 normal, no murmur appreciated. Resp: Clear to auscultation bilaterally, no rhonchi, rales, wheezing or rubs Course Course Level of Care: Express Care Visit Vital Signs Vital signs: Vital Signs Temperature 36.6 C 06/02/25 08:22 Pulse Rate 85 06/02/25 08:22 Respiratory Rate 18 06/02/25 08:22 Blood Pressure 137/62 06/02/25 08:22 Pulse Oximetry 97 06/02/25 08:22 Oxygen Delivery Room Air 06/02/25 08:22 Temperature 36.6 C 06/02/25 08:22 Pulse Rate 85 06/02/25 08:22 Respiratory Rate 18 06/02/25 08:22 Blood Pressure 137/62 06/02/25 08:22 Pulse Oximetry 97 06/02/25 08:22 Oxygen Delivery Room Air 06/02/25 08:22 [facility] MDM Narrative Medical decision making narrative: At the time of visit patient is resting comfortably on the exam table. Patient appears to be nontoxic. Complaints right eye irritation x2 days. He reports he thinks he may have pinkeye. Is he woke up this morning with some white crusting of his eye. States his eyelid has been painful and itchy. Does have some blurry vision at times. Denies any fevers, chills, body aches. No known exposure to any one with conjunctivitis. Has not been completing any treatments home for his symptoms. On exam patient has redness and swelling to the right upper eyelid mid -lateral lateral with tenderness to palpation, mild right upper eyelid swelling, sclera and conjunctiva normal bilaterally, left eyelids normal. Plan: I suspect patient has a developing stye versus blepharitis of the right upper eyelid. Prescription for polymyxin eyedrops was sent to the pharmacy. Also recommend using Froylan's and Froylan's baby shampoo to wash in the eyelid twice daily. May perform warm moist compresses as discussed. Supportive measures were discussed with the patient and they voiced understanding discharge instructions and agrees to treatment plan. Return precautions reviewed Differential Diagnosis Differential Diagnosis: Differential diagnostic considerations for eye problems include corneal abrasion, blepharitis, conjunctivitis, acute iritis, hyphemia, periorbital cellulitis, subconjunctival hemorrhage, stye, glaucoma, corneal ulcer, ruptured globe, foreign body in eye. Discharge Plan Discharge Clinical Impression: Hordeolum of right upper eyelid Qualifiers: Hordeolum type: unspecified type Qualified Code(s): H00.011 - Hordeolum externum right upper eyelid Blepharitis Qualifiers: Blepharitis type: unspecified type Laterality: right Eyelid: upper Qualified Code(s): H01.001 - Unspecified blepharitis right upper eyelid Patient Disposition: Home Condition: Stable Instructions: Antibiotic Form, Stye (ED), Blepharitis (ED) Additional Instructions: You possibly have a developing stye vs blepharitis Practice good hand washing techniques Avoid touching eyes Instill eyedrops as prescribed May use warm moist washcloth to help remove eye discharge If eyes are matted shut-do not pry eyes open-use a warm moist cloth to loosen matting and wipe matter away from eye May take Tylenol/Motrin as needed for pain or fever May take Benadryl as needed for itching Follow-up with your PCP in 3-5 days if symptoms persist or sooner if they worsen Go to the emergency room if you develop any fever that is not controlled by Tylenol or Motrin, loss of vision, eye pain, increase eye swelling,visual changes, headache, confusion, lethargy, weakness, chest pain, or shortness of breath. Patient Language: Pashto Prescriptions: New polymyxin B sulf-trimethoprim 10,000 unit- 1 mg/mL drops 1 drp RIGHT EYE Q3H 7 Days Qty: 10 0RF Rx Instructions: while awake; do not exceed 6 doses in 24 hours No Action aspirin [Adult Low Dose Aspirin] 81 mg tablet,delayed release (DR/EC) 81 mg PO DAILY atorvastatin 40 mg tablet 40 mg PO DAILY calcium carbonate [Calcium 600] 600 mg calcium (1,500 mg) tablet 600 mg PO DAILY cholecalciferol (vitamin D3) 25 mcg (1,000 unit) capsule 25 mcg PO DAILY clopidogrel 75 mg tablet 75 mg PO DAILY nitroglycerin 0.4 mg tablet, sublingual 0.4 mg SUBLINGUAL Q5M PRN (Reason: c) Rx Instructions: until response; do not exceed 3 doses per episode mupirocin 2 % ointment 1 applic topical .COMPLEX Qty: 44 3RF Rx Instructions: 1 applic topically; intra nasal, 6 times per day doxazosin 8 mg tablet See Rx Instructions .ROUTE .COMPLEX Rx Instructions: TAKE 1 TABLET BY MOUTH HS metoprolol succinate 50 mg tablet extended release 24 hr 50 mg PO DAILY (DME) blood-glucose meter Misc See Rx Instructions .MEDSUPPLY Qty: 1 0RF Rx Instructions: As directed (DME) lancets [Microlet Lancet] Misc See Rx Instructions .ROUTE .COMPLEX Qty: 100 2RF Dose Instruction: TEST ONCE DAILY Rx Instructions: TEST ONCE DAILY pantoprazole 40 mg tablet,delayed release (DR/EC) 40 mg PO QAM Qty: 90 2RF (DME) Contour Next Test Strips Strip See Rx Instructions .ROUTE .COMPLEX Qty: 100 3RF Dose Instruction: TEST ONCE DAILY Rx Instructions: TEST ONCE DAILY acyclovir 400 mg tablet 400 mg PO DAILY Qty: 90 2RF Follow-up/Referrals: Anthony Zuh MD [Primary Care Provider, [facility]] Time of Disposition: 08:30 Quality NIHSS Nursing Documentation ED NIHSS nursing documentation: reviewed/agree
[2025-06-02 08:22] VITALS: BP 137/62; PULSE 85; RESP 18; TEMP 36.6; O2SAT 97
== END 2025-06-02 08:38 | disposition home or self-care (01) ==
PROVIDERS: Emergency Provider Nurse Practitioner Family; PCP Family Medicine
DX: H00.011 Hordeolum externum right upper eyelid (principal); H01.001 Unspecified blepharitis right upper eyelid; E11.9 Type 2 diabetes mellitus without complications; N40.0 Benign prostatic hyperplasia without lower urinary tract symptoms; K21.9 Gastro-esophageal reflux disease without esophagitis; E78.5 Hyperlipidemia, unspecified; I11.9 Hypertensive heart disease without heart failure; I25.10 Atherosclerotic heart disease of native coronary artery without angina pectoris; Z87.891 Personal history of nicotine dependence
CPT/HCPCS: 99213; G0463